=== PATIENT | female | born 1945 | race Caucasian/White ===

== ENCOUNTER → 2023-04-17 11:12 | Outpatient (REF) | payer MEDICARE, SELFPAY | LOC: RCS 11:12 | PROVIDERS: ATTENDING PHYSICIAN Internal Medicine Cardiovascular Disease; FAMILY PHYSICIAN Physician Assistant | DX: R94.31 Abnormal electrocardiogram [ECG] [EKG] (principal) | CPT/HCPCS: 93225; 93226 ==

== ENCOUNTER 2023-07-04 12:10 | Inpatient (IN) | payer MEDICARE, SELFPAY ==
[2023-07-03 19:57] VITALS: BP 120/74
[2023-07-03 20:44] VITALS: BMI 18.4
--- NOTE | 2023-07-03 20:44 | ED.GENMED ---
History of Present Illness
General
Chief Complaint: Urinary Symptoms
Source: patient and family
Time Seen by Provider: 07/03/23 20:23
Travel History
Have you had any contact with someone who has COVID-19?: No
Do you have any symptoms of coronavirus? Fever > 100 degrees, chills, cough, shortness of breath, sore throat, loss of taste or smell, muscle aches, or headache?: No
History of Present Illness
History of Present Illness:
This patient is a 77-year-old female presents emergency department with a variety of different complaints. She first started to feel not herself about a week ago. She describes feeling 'off balance' especially when trying to stand or walk. This
is not a sensation of spinning or rotation or motion, no palpitations, lightheadedness. She does not feel this while laying in the bed, but only when she tries to stand or walk. She saw her doctor on Tuesday with complaints of irritation of her ear
and was told that her canal is obstructed with wax and she need to see an ENT doctor which she has not yet been able to do. By Tuesday patient developed nausea, mild appetite loss, nonbloody diarrhea which continues. Daughter states she checked
her blood pressure yesterday and it was 114/42. Today she was particularly noted to be just not herself, describes repeating things, losing focus, and difficulty concentrating. Patient denies abdominal discomfort (despite triage note), vomiting,
back pain, urinary symptoms, cough, sore throat, rhinorrhea, photophobia, numbness, focal weakness, visual complaints, or other complaints
Past History
Past History
ED Past Medical History: Other (Rheumatoid arthritis, hypertension)
Social History
Tobacco: Non-smoker
Alcohol: None
Drug: None
Living: alone
Employment: Employed
Family History
Family History: Other (Noncontributory)
Phy Exam
Physical Exam
Physical Exam:
GENERAL: Alert , in no apparent distress
EYE: pupils equal and reactive, no photophobia, no nystagmus, EOMI
NECK: Supple, no significant adenopathy, nods yes and no spontaneously without difficulty.
ENT: o/p clr, mmm.
CARDIAC: Regular rate and rhythm .
LUNGS: Clear breath sounds bilaterally, no acute respiratory distress, no wheezes/rales/rhonchi
ABDOMEN: Soft, without focal tenderness, no r/g, no cvat
NEUROLOGICAL: Alert and oriented, no focal neuro deficits, motor 5 out of 5, sensory intact, [id number] normal, cranial nerves II through XII intact. However, patient very off balance upon standing and when trying to perform Romberg fell back
into the bed.
SKIN: Warm and dry, skin intact.
MUSCULOSKELETAL: No edema, well perfused.
PSYCH: Normal and appropriate interaction.
Course
Orders/Labs/Results
Orders:
Orders
07/03/23 20:04
Electrocardiogram (*1) Urgent
Reason for Study: Vertigo / Dizzy
EKG- Treatment ONCE
07/03/23 20:28
CMP [Comprehensive Metabolic Panel] Urgent
Complete Blood Count/With Diff Urgent
Blood Culture Urgent
FABIANA Source: Blood/Venous
Specimen Description:
Date Specimen was Collected: 07/03/23
Time Specimen was Collected: 20:04
Influenza A+B Rapid Molecular Urgent
FABIANA Source: Nasal Swab
Specimen Description:
07/03/23 20:29
COVID-19 Antigen Urgent
Source: Nasal Swab
Lactic Acid Urgent
07/03/23 20:43
CT Head W/o Iv Contrast Urgent
Comment:
Reason For Exam: FEVER, MS CHANGE
0.9% Sodium Chloride 1000 ml [Nss] 1,000 ml IV BOLUS
Acetaminophen [Tylenol] 650 mg PO NOW STA
07/03/23 20:50
Blood Culture Routine
FABIANA Source: Blood/Venous
Specimen Description:
07/03/23 21:56
Osmolality, Random Urine Urgent
Date Specimen was Collected: 07/03/23
Time Specimen was Collected: 20:04
Comment: ADD ON
Urinalysis Urgent
Date Specimen was Collected: 07/03/23
Time Specimen was Collected: 20:04
Urine Creatinine Urgent
Date Specimen was Collected: 07/03/23
Time Specimen was Collected: 20:04
Comment: ADD ON
Urine Microscopic Urgent
Date Specimen was Collected: 07/03/23
Time Specimen was Collected: 20:04
Urine Sodium Urgent
Date Specimen was Collected: 07/03/23
Time Specimen was Collected: 20:04
Comment: ADD ON
Urine Culture Urgent
FABIANA Source: U
Specimen Description:
Date Specimen was Collected: 07/03/23
Time Specimen was Collected: 20:04
07/04/23 01:58
Admit/Transfer Patient As Directed
Co-Sign Provider:
Level of Care: Observation services
Assign to:: Telemetry
Physician / Group: Htay/Hospitalist service
Diagnosis: symptomatic hyponatremia
Reason for Telemetry: Other
Other Reason for Telemetry: hyponatremia, narcolepsy
Date to Stop Telemetry: 07/06/23
Time to Stop Telemetry: 11:00
Reason for Hospitalization: Neuro consult, trend Na+, trend telemetry
Expected length of stay greater than two midnights?: No
07/04/23 02:02
Code Status As Directed
Resuscitation Status: Full Code
07/04/23 03:11
Acetaminophen [Tylenol] 650 mg PO Q4HPRN PRN
07/04/23 03:11
Add On- LAB Routine
Tests Added?: TSH
Add On- LAB Routine
Tests Added?: urine sodium, urine osmo, urine creatinine
Consult Notification Routine
Specialty to Notify: Neurology
Date consulting provider notified: 07/04/23
Time consulting provider notified: 08:27
Notified:: Provider
Comment: TT to Dr Bryan
NEUROLOGY CONSULT Routine
Consulting Provider: Elbert Bryan
Was physician already notified: No
Reason for consult: ?symptomatic hyponatremia
Activity As Directed
Activity Level: Out of Bed-Early Mobility
Intake/ Output As Directed
Frequency: Per unit guidelines
Pneumatic Compression Sleeves As Directed
Type: Knee high
Vital Signs As Directed
Frequency: Per unit guidelines
Pulse Ox/spot Check [RESP] Routine
Quantity: 1
Ot Eval And Treat Routine
Treatment: cognitive
PT Consult [Pt Eval And Treat] Routine
Activity Level: Out of Bed-Early Mobility
DX Deep Vein Thrombosis Video Routine
07/04/23 03:52
Pt Screening Request from Edwige Routine
07/04/23 04:00
Flush (0.9% Sodium Chloride) [Flush (Nss)] See Dose Instructions IV PER PROTOCOL
07/04/23 04:30
Basic Metabolic Panel IN AM
Magnesium IN AM
TSH Routine
Comment: ADD ON
07/04/23 Breakfast
Cholesterol Lowering
At Your Request: Full Participation
Does patient need a safe tray?: No
Fluid Restriction: 1200 mL/day (40 oz)
07/04/23 07:15
MR Brain Without Contrast Routine
Comment: Ataxia, dizzy, balance abnormalities
Reason For Exam: Rule out posterior circulation infarct
Recent pill cam endoscopy?: No
07/04/23 08:00
Heparin 5,000 units SC Q12
Levothyroxine [Synthroid] 75 mcg PO DAILY@0600
Losartan [Cozaar] 100 mg PO DAILY
Orthostatic Vital Signs As Directed
Orthostatic VS Frequency: BID
07/04/23 08:04
Aspirin Chewable [Low Strength Aspirin] 81 mg PO NOW STA
07/04/23 08:06
Orthostatic Vital Signs As Directed
Orthostatic VS Frequency: Now
Comment: PLEASE TT ME RESULT
07/04/23 08:45
0.9% Sodium Chloride 1000 ml [Nss] 1,000 ml IV 80 mls/hr
07/04/23 10:00
CefTRIAXone [Rocephin] 1,000 mg IV Q24H
Sterile Water [Sterile Water For Injection] 10 ml IV Q24H
07/04/23 16:21
Sodium Routine
07/05/23 05:56
BMP [Basic Metabolic Panel] IN AM
CBC/With Diff [Complete Blood Count/With Diff] IN AM
Magnesium IN AM
07/06/23 11:00
DC Protocol for Telemetry ONCE
Abnormal Lab Results
07/03/23 07/03/23 07/04/23
20:28 21:56 04:30
RBC 3.63 L 10^6/uL
(4.20-5.40)
Hgb 11.1 L g/dL
(12.0-16.0)
Hct 31.4 L %
(37.0-47.0)
Absolute Lymphs (auto) 0.7 L 10^3/uL
(1.2-3.4)
Neutrophils % 81.5 H %
(42.2-75.2)
Lymphocytes % 9.7 L %
(20.5-51.1)
Sodium 127 L mmol/L 129 L mmol/L
(135-145) (135-145)
Chloride 94 L mmol/L
(98-107)
Glucose 161 H mg/dl 123 H mg/dl
(70-99) (70-99)
Calcium 8.2 L mg/dl 7.6 L mg/dl
(8.4-10.2) (8.4-10.2)
AST 59 H U/L
(14-36)
Urine Ketones Trace A
(Negative)
Urine Occult Blood 4+ A
(Negative)
Ur Leukocyte Esterase Trace A
(Negative)
Urine RBC 11-15 A /HPF
(0-2)
Urine WBC 6-10 A /HPF
(0-5)
Urine Bacteria Few A
(Negative)
Urine Sodium 92 H mmol/L
(30-90)
Urine Albumin 2+ A
(Neg - Trace)
07/03/23 20:28
07/04/23 04:30
Vital Signs
Initial and Last Documented VS:
Initial Vital Signs
Temp Pulse Resp BP Pulse Ox
102.8 F H 84 24 120/74 95
07/03/23 19:57 07/03/23 19:57 07/03/23 19:57 07/03/23 19:57 07/03/23 19:57
Last Documented Vital Signs
Temp Pulse Resp BP Pulse Ox
97.8 F 63 16 149/65 95
07/08/23 11:30 07/08/23 12:37 07/08/23 11:30 07/08/23 12:37 07/08/23 11:30
*Critical Care Note
Total Time (30-74mins, 75-104mins- exclusive of procedures): Not Applicable
Update Note
Update Note:
Patient presents to the Emergency Department with fever, 'off balance', etc.____
Number and Complexity of Problems Addressed at the Encounter
� Chronic conditions affecting care:
� Acute Exacerbation and/or Progression of Chronic Illness:
� Differential Diagnosis includes: But not limited to pneumonia, UTI, metabolic encephalopathy, etc.
Amount and/or Complexity of Data to be Reviewed and Analyzed
� I performed an independent evaluation of and my interpretation is:
EKG:
CT:Moderate white matter leukoaraiosis in the frontal and parietal lobes.
2. Moderate bilateral frontal lobe volume loss.
3. 3.7 cm arachnoid cyst in the posterior fossa.
Xrays:
Laboratory Studies:hypoNa 127, mild hypoerglycemia, equivacol urine
Other:
� Review of other/old records reveals:
� Clinical information was obtained by an independent historian: Daughter who is at bedside
� Prescriptions/Medications Considered but not given:
� Further testing considered but not performed:
Risk of Complications and/or Morbidity or Mortality of Patient Management
� Social determinants of health affecting care:
� Discussion with other providers (PCP, Hospitalists, Consultants, etc):
� Escalation of care including admission/observation vs risk of discharge considered: Of note, patient gets the methotrexate infusion on a regular basis. No specific etiology for fever noted here, no meningismus to suggest
meningitis/encephalitis, no meningeal signs on exam. Overall stable. Disequilibrium may be d/w hypoNa although cnsideratin for post circ process, dilan will need MR as inpt for full assessment. (not iat/tnk candidate). Will admit for further
eval and care. Pt is on an arb which may be contributing, will d/c that.
ED Attending Note
-
Portions of this chart may have been created with voice recognition software.� Occasional wrong word or��sound alike� substitutions may have occurred due to the inherent limitations of voice recognition software.
Discharge Plan
Departure
Patient Disposition: Admit
Date of Disposition: 07/04/23
Time of Disposition: 00:09
Admit to: Telemetry
Admit to doctor: [email or web address]
Presentation/result/management discussed w/ accepting MD/DO: Hospitalist
Condition: Fair
Discharge Problem:
Acute hyponatremia
Interventions
Interventions:
*Risk Screen - Suicide Last Done: 07/04/23 03:30
*General Assessment Last Done: 07/03/23 20:41
*Neglect/Abuse Screening Last Done: 07/03/23 19:57
ED- Fall Risk Assessment Last Done: 07/03/23 20:58
*ED COVID-19 Vaccine History Last Done: 07/04/23 03:30
*Nursing Disposition Last Done: 07/04/23 03:08
ED-Female Genitourinary Assessment Last Done: 07/03/23 20:58
ED- Neurological Assessment Last Done: 07/03/23 20:58
ED-Skin Assessment Last Done: 07/03/23 20:58
Discharge Date and Time
Discharge Date/Time: 07/04/23 03:08
[2023-07-03 20:45] LABS: % Basophils 0.1 % (0-2); % Immature Granulocytes 0.5 % (0-0.5); % Lymphocytes 9.7 % (20.5-51.1); % Monocytes 8.2 % (1.7-9.3); % Neutrophils 81.5 % (42.2-75.2); Absolute Lymphocytes 0.7 10^3/uL (1.2-3.4); Absolute Monocytes 0.6 10^3/uL (0.1-0.6); Absolute Neutrophils 6.2 10^3/uL (1.4-6.5); Hematocrit 31.4 % (37.0-47.0); Hemoglobin 11.1 g/dL (12.0-16.0); Mean Corp Hgb Conc. 35.4 g/dL (33.0-37.0); Mean Corpuscular Hgb 30.6 pg (27.0-31.0); Mean Corpuscular Volume 86.5 fL (81.0-99.0); Nucleated Red Blood Cells % 0 %; Platelet Count 172 10^3/uL (130-400); Red Blood Cell Count 3.63 10^6/uL (4.20-5.40); Red Cell Dist. Width 12.9 % (11.5-14.5); White Blood Cell Count 7.6 10^3/uL (4.8-10.8)
[2023-07-03] MEDS: NSS 1000 IV (20:51)
[2023-07-03 20:56] LABS: Lactic Acid 1.2 mmol/L (0.7-2.0)
[2023-07-03] MEDS: TYLENOL 650 MG PO (20:56)
[2023-07-03 20:58] VITALS: BP 138/54
[2023-07-03 21:00] VITALS: BP 111/90
[2023-07-03 21:02] LABS: ALT (SGPT) 22 U/L (0-35); AST (SGOT) 59 U/L (14-36); Albumin 3.7 g/dl (3.5-5.0); Alkaline Phosphatase 46 U/L (38-126); Blood Urea Nitrogen 12 mg/dl (7-17); Calcium 8.2 mg/dl (8.4-10.2); Carbon Dioxide 24 mmol/L (22-30); Chloride 94 mmol/L (98-107); Estimated Creatinine Clearance 60 ml/min; Glucose 161 mg/dl (70-99); Potassium 3.7 mmol/L (3.5-5.1); Sodium 127 mmol/L (135-145); Total Bilirubin 0.5 mg/dl (0.2-1.3); Total Protein 6.7 g/dl (6.3-8.2); eGFR > 60.00
[2023-07-03 21:03] LABS: COVID-19 Antigen Negative (Negative)
[2023-07-03 22:11] LABS: Urine Albumin 2+ (Neg - Trace); Urine Bilirubin Negative (Negative); Urine Glucose Negative (Negative); Urine Ketone Trace (Negative); Urine Leukocyte Trace (Negative); Urine Nitrite Negative (Negative); Urine Occult Blood 4+ (Negative); Urine Urobilinogen Negative (Neg - 1+)
[2023-07-03 22:24] LABS: Urine Character Clear (Clear); Urine Color Yellow
[2023-07-03 22:28] LABS: Urine Hyaline Cast 0-2 /LPF (0-2)
[2023-07-03 22:31] LABS: Urine Bacteria Few (Negative)
[2023-07-03 22:34] VITALS: BP 107/52
[2023-07-03 23:00] VITALS: BP 114/55
[2023-07-04] VITALS (12 sets, daily range): BP systolic 104–150; BP diastolic 45–119; PULSE 56–96; O2SAT 92; BMI 18.5
--- NOTE | 2023-07-04 02:01 | HPS.HSE ---
Addendum entered and electronically signed by Emerson Fernandez MD 07/04/23 14:25:
OT evaluation
07/04/23
11:58
Comment AAOx3, follows
1-2 step
directions,
impaired STM.
Pt scores 40/50
on BCAT, a
score
consistent with
mild cognitive
impairment.
Recommend pt
use pill sorter
and have
family
supervision
initially for
medication mgmt
.
Original Note:
Family Physician
-
Family Physician: Joy Capps
Chief Complaint
-
Subjective balance dysfunction and not felt well
History of Present Illness
77F HX RA on Remicade, HX Narcolepsy on Armodafinil, Depression on SSRI seen art ER for evaluation of subjective balance dysfunction
Subjective balance dysfunction
- associated posture especially standing or walking
- denies vertiginous like symptoms
- Denied recent falls
- Denies any focal weakness or abnormal vision
- Recently eval by PCP noted obstructed ear canal with wax, pending to see ENT
- No prior HX CVA
- Noted soft BP at ER and labile
- Reports not herself, repeating things, losing focus, and difficulty concentrating
- No recent acute viral illness
ROS;
No abdominal discomfort, vomiting
No urinary symptoms
No cough, sore throat, rhinorrhea,
No numbness, focal weakness, visual complaints
Medical History
Past Medical History
Past Medical History: Reports Other
Additional Past Medical History:
HX RA on Remicade, HX Narcolesy on Armodafinil, Depression on SSRI
Past Surgical History: Reports None
Social History
Tobacco: Non-smoker
Alcohol: None
Drug: None
Living: Alone
Family History
Family History: Not pertinent
Allergies / Home Medications
Allergies reflects when Allergies were last updated in [facility].
Home Medications with original date entered in [facility]
Allergy/Medication List:
Allergies
Allergy/AdvReac Type Severity Reaction Status Date / Time
NKA - No Known Allergies Allergy Unknown Uncoded 07/03/23 20:03
Home Medications
escitalopram oxalate 20 mg tablet 30 mg PO DAILY 10/10/15
armodafinil 150 mg tablet 150 mg PO DAILY 07/03/23
coenzyme Q10 100 mg capsule (CoQ-10) 200 mg PO DAILY 07/03/23
levothyroxine 75 mcg tablet 75 mcg PO DAILY 07/03/23
losartan 100 mg tablet 100 mg PO DAILY 07/03/23
methocarbamol 500 mg tablet 500 mg PO Q8H 07/03/23
Review of Systems
-
Constitutional: Reports No Symptoms
EENT: Reports No Symptoms
Respiratory: Reports No Symptoms
Cardiac: Reports No Symptoms
Abdomen/GI: Reports No Symptoms
: Reports No Symptoms
Musculoskeletal: Reports No Symptoms
Skin: Reports No Symptoms
Neurological: Reports See HPI; Denies Headache, Weakness or Numbness
Endocrine: Reports No Symptoms
Hematologic/Lymphatic: Reports No Symptoms
Psych: Reports No Symptoms
Physical Exam
Vital Signs
Vital Signs
Temp Pulse Resp BP Pulse Ox
99.8 F 62 20 107/54 95
07/03/23 22:34 07/04/23 01:00 07/04/23 01:00 07/04/23 01:00 07/03/23 21:00
Physical Exam
General: Well Developed, No Apparent Distress, Comfortable and Conversant
HEENT: NormoCephalic, Anicteric, Moist mucous membranes, PERRLA, No Ptosis and Other (no nystagmus ); No Hearing Impaired
Respiratory: Clear; No Wheezes, Rales or Rhonchi
Cardiac: S1/S2 and Regular Rhythm
Breast: Deferred by me
GI: Soft, Non Tender, Non Distended and Normal Bowel Sounds
Rectal: Deferred by Provider
Genito-urinary: Deferred by me
Musculoskeletal: No Edema
Skin: Warm and Dry
Neuro: AO x 3 and Nonfocal/grossly intact; No Slurred Speech, Facial Droop or Tremors
Psych: Calm
Laboratory Results
-
07/03/23 20:28
07/03/23 20:28
Laboratory Results
Lactic Acid 1.2 mmol/L (0.7-2.0) 07/03/23 20:29
Total Bilirubin 0.5 mg/dl (0.2-1.3) 07/03/23 20:
AST 59 U/L (14-36) H 07/03/23 20:28
ALT 22 U/L (0-35) 07/03/23 20:28
Alkaline Phosphatase 46 U/L (38-126) 07/03/23 20:28
Data Reviewed
-
CT Scan: Report Reviewed by me
Medical Tests (Nuc Med, Echo, EKG etc): Report Reviewed by me
Lab Data: Labs Reviewed by me
Impression/Plan
-
Reviewed VS: T102.8 BP 138/54--> 107/54 HR 60-70s
Data
Hgb 11 - bl 13s
Na 127 -bl 135 - 140
BG 161
NEG LA
Ca 8.2
AST 59
UA : equivocal for UTI
NEG Covid
NEG Flu A & B
BCx sent
Pending Stool CX , C Diff
HCT
1. Moderate white matter leukoaraiosis in the frontal and parietal lobes.
2. Moderate bilateral frontal lobe volume loss.
3. 3.7 cm arachnoid cyst in the posterior fossa.
EKG report
NORMAL SINUS RHYTHM
NONSPECIFIC ST AND T WAVE ABNORMALITY
ABNORMAL ECG
WHEN COMPARED WITH ECG OF 10-OCT-2015 20:54,
NONSPECIFIC T WAVE ABNORMALITY NOW EVIDENT IN INFERIOR LEADS
NONSPECIFIC T WAVE ABNORMALITY NOW EVIDENT IN ANTEROLATERAL LEADS
QT HAS SHORTENE
04/12/23 TTE
LVEF 60-65
Aortic sclerosis without stenosis.
ASSESSMENT & PLAN
Subjective balance dysfunction without focal neurological signs
Current HCT findings are unreadable for etiology of balance dysfunction
Associated posture especially standing or walking
- denies vertiginous like symptoms
- Denied recent falls
- Ortho VSS
- fall precaution
- OT consult for BCAT ( Brief cognitive assessment test )
- Neuro consult
Acute hyponatremia with relative hypotensive suspect due to recent diarrhea
Clinically hypovolemic; Mild
Risk of hyponatremia with SSRI but prior Na are normal while on years of Escitalopram
- S/p 1 L NS at ER then Fluid restrict 1 L and trend Na
- Ur Na, Ur Osm , Sr Osm
Sinus bradycardia
- check TSH
Fever at ER
report Diarrhea
NEG Covid , NEG FLU A & B
Equivocal UA for UTI
- check stool Cx, C Diff
HX RA on Remicade - infusion every 8 weeks - she cannot recall when was the last dose
HX Narcolepsy on Armodafinil
Depression on SSRI
DVT Px: LMWH
Code: Full code
Obs TLM
--- NOTE | 2023-07-04 04:53 | PTCARENOTE ---
patient admitted to 2130, placed on tele monitor, oriented to floor routines. Call pedro within reach. Inst patient on need for stool sample, hat placed in toilet, pt verb understanding
[2023-07-04 05:32] LABS: Osmolality Urine 483 mOsm/kg (300-900)
[2023-07-04 05:37] LABS: Blood Urea Nitrogen 11 mg/dl (7-17); Calcium 7.6 mg/dl (8.4-10.2); Carbon Dioxide 24 mmol/L (22-30); Chloride 100 mmol/L (98-107); Estimated Creatinine Clearance 61 ml/min; Glucose 123 mg/dl (70-99); Magnesium 1.9 mg/dl (1.6-2.3); Potassium 3.7 mmol/L (3.5-5.1); Sodium 129 mmol/L (135-145); eGFR > 60.00
[2023-07-04 05:58] LABS: TSH 2.93 uIU/ml (0.47-4.68)
[2023-07-04 06:15] LABS: Urine Sodium 92 mmol/L (30-90)
--- NOTE | 2023-07-04 07:54 | W.PN.HOSP.TC ---
Today's Communication/Plan
-
start IVF
start abx for UTI
awaiting stool studies
MRI ordered per neuro
PT/OT
Assessment / Plan
Assessment / Plan
HEAD CT
IMPRESSION:
1. Moderate white matter leukoaraiosis in the frontal and parietal lobes.
2. Moderate bilateral frontal lobe volume loss.
3. 3.7 cm arachnoid cyst in the posterior fossa.
ASSESSMENT & PLAN
Subjective balance dysfunction and word finding difficulty
Associated posture especially standing or walking
-head CT results above, no acute event
- denies vertiginous like symptoms
- F/U orthostats - not yet in computer
- asa now, MRI ordered per neuro
- F/U final neuro consult
- PT/OT
Acute hyponatremia with relative hypotensive suspect due to recent diarrhea and fluid loss with fever
Risk of hyponatremia with SSRI but prior Na are normal while on years of Escitalopram
- S/p 1 L NS at ER
- Na improved from 127 to 129
-urine studies show elevated Na but with persistent fevers and improvement s/p 1L bolus will resume running IVF given risk volume loss
- repeat Na at 2 PM
Sinus bradycardia
-TSH WNL, P 82 this AM
Fever at ER in setting of diarrhea
NEG Covid , NEG FLU A & B
UA with mild inflammation - with persistent fever and GI complaints will start abx
- check stool Cx, C Diff
HX RA on Remicade - infusion every 8 weeks - she cannot recall when was the last dose
HX Narcolepsy on Armodafinil
Depression on SSRI
DVT Px: LMWH
Code: Full code
Obs TLM
Anticipated Discharge: 24 - 48 hours
Subjective/Interval History
-
Date of Service: July 04, 2023
patient states she is hungry and thirsty
she has felt off balance x 1 weeks
no weakness in arms or legs
left eye always a bit more droopy than right
Objective Data
-
Labs:
Laboratory Results
07/03/23 07/04/23
20:28 04:30
WBC 7.6
Hgb 11.1 L
Hct 31.4 L
Plt Count 172
Sodium 127 L 129 L
Potassium 3.7 3.7
Chloride 94 L 100
Carbon Dioxide 24 24
BUN 12 11
Creatinine 0.6 0.6
Glucose 161 H 123 H
Calcium 8.2 L 7.6 L
Total Bilirubin 0.5
AST 59 H
ALT 22
Alkaline Phosphatase 46
Vital Signs:
Vital Signs
Temp Pulse Resp BP Pulse Ox
99.3 F 82 20 149/58 95
07/04/23 03:39 07/04/23 03:39 07/04/23 03:39 07/04/23 03:39 07/04/23 03:39
I&O
07/03/23 07/04/23 07/05/23
06:59 06:59 06:59
Intake Total 380 / 380
Balance 380 / 380
Review of Systems
-
History Source: Patient
All other systems: Reviewed and negative
Physical Exam
-
General: No Apparent Distress
HEENT: Other (mild left eye ptosis (chronic per patient))
Respiratory: Clear to Auscultation; Negative Wheezes
Cardiac: Regular Rhythm and S1/S2
GI: Soft and Nontender
Musculoskeletal: No Edema
Skin: Warm and Dry; Negative Rash
Neuro: AO x 3 and Other (no obvious pronator drift, 5/5 strength upper and lower extremities )
Psych: Calm
Data Reviewed
-
Diagnostic Radiology: Report Reviewed by me
Labs: Labs Reviewed by me
--- NOTE | 2023-07-04 08:09 | CON.NEURO4 ---
Addendum entered and electronically signed by Elbert Bryan MD 07/04/23 15:34:
Brain MRI with no acute findings moderate ischemic microvascular disease no chronic strokes or hemorrhage
No indication for chronic aspirin
Continue with the care otherwise
Addendum entered and electronically signed by Elbert Bryan MD 07/04/23 12:25:
I saw and evaluated the patient I reviewed the note by Alisha Thomas agree with the findings the following comments:
77-year-old woman with a past medical history of type I narcolepsy, hypothyroidism, depression, rheumatoid arthritis on Remicade who presents to the hospital with couple of symptoms including abdominal pain and diarrhea for the past, as well as
feeling off balance and a bit of fogginess difficulty concentration and some mild speech difficulties.
Patient reports she first began to feel unwell around 1 week ago noting some difficulties with concentration brain fogginess and poor memory at that time. For the past several days she has had diarrhea daily without any vomiting has had some mild
abdominal pain, denies dysuria or polyuria. Has also had some balance difficulty. Did have fever to 102 and 100.9 here. Has not had any recent exotic foods or undercooked chicken or fish or recent travel, no recent antibiotics.
Neurologic examination shows some mild psychomotor slowing difficulty with complex cognitive tasks, no aphasia no neglect praxis is normal, fully conversational and awake. Normal cranial nerves normal motor function and symmetric reflexes without
any pathologic reflexes normal finger-nose testing no ataxia.
CT head noncontrast with mild bifrontal volume loss and 3.7 cm arachnoid cyst in the posterior fossa
Assessment
-Most likely toxic metabolic encephalopathy due to acute illness with GI illness fever and mild hyponatremia
-Rheumatoid arthritis on immunosuppression with Remicade
-Type I narcolepsy
Recommendations
-Given her immunosuppression with Remicade would have low threshold to check brain MRI without contrast which I will order
-Treat suspected urinary tract infection and workup of abdominal pain and diarrhea
-Do not recommend aspirin
-Follow sodium
Original Note:
Documented by User: Alisha Steele NP 07/04/23 10:48
Consultation - Neurology 4
-
CONSULTING PHYSICIAN: Gatito Bryan MD
REFERRING PHYSICIAN: Hospitalists/MOISE Schmidt
DICTATED BY: MOISE Garrett
DATE/TIME OF REQUEST: 07/04/23
DATE/TIME OF CONSULTATION: 07/04/23
Reason for Consultation: Dizziness
History of Present Illness:
This is a 77-year-old right-handed female who has presented to the hospital on 07/03/23 with report of diarrhea . Patient reports that about one week ago she started to have intermittent diarrhea. Since the diarrhea started, she reports that her
gait became unsteady and her brain has felt 'fuzzy.' Her left ear was bothering her last week as well, and her PCP noted that it was impacted with wax and referred her to ENT. She endorses some RLQ abdominal discomfort, abdominal bloating, and runny
stools. Her last large runny stool was two days ago on 07/02/23, but today she endorses 4-5 small episodes of runny diarrhea including incontinence. She feels forgetful and is having a hard time keeping track of things she usually has no issues with.
She denies any falls but reports that if she doesn't focus while walking she does lose her balance. She denies any urinary changes/discomfort and any recent illnesses or antibiotic usage. Yesterday, her daughter encouraged her to come to the ER for
evaluation due to her ongoing symptoms. CT head was obtained in the ER and is negative for any acute abnormalities. Sodium is 127. Urinalysis is questionable for UTI. Temperature today is 102F. She denies any headache, dizziness, light-headed,
vision changes, speech/swallow difficulty, numbness, weakness, nausea, chest pain, palpitations, and shortness of breath. She endorses chronic left eyelid drooping that she had surgically repaired several years ago.She denies any history of TIA or
stroke and she is not taking any blood-thinning medications.
Past Medical History: Rheumatoid arthritis, HTN, hypothyroidism, thyroid nodule, narcolepsy, shingles, osteopenia, depression, bilateral sensorineural hearing loss, ADHD
Surgical History: b/l cataract removal, left eyelid lift, salivary gland biopsy, LPS- BTL, L arm surgery, R knee surgery
Family History: Father, brother, daughter, and granddaughter- narcolepsy/cataplexy. Mother- CVA.
Social History: Denies tobacco and illicit drug use. Wine daily. Lives alone with her 3 cats- Jayson Salmeron, Princess Hinojosa, and Long. 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
Allergies: No known allergies.
Home Medications: See below.
Review of Symptoms:
Patient denies any headache, chest pain, shortness of breath, GI or symptoms.
�Per the HPI.�All systems are reviewed negative except above.
Physical Exam:
The patient is afebrile, abdomen is nondistended, breathing is unlabored, skin is warm and dry, no edema.
NIH Stroke Scale:
I performed the NIH stroke scale on the patient on 07/04/23 at 0830. The patient scored 1 points on the NIH stroke scale assessment, which were assigned as follows: See below.
Neurologic Examination:
The patient is awake, alert and oriented x 3. She is able to follow commands and answer questions appropriately. There is no aphasia or dysarthria. On cranial nerve assessment, pupils are 3 mm bilateral, round and reactive to light and
accommodation. Visual aguirre are full. Extraocular movements are intact. There is slight left eyelid drooping. Hearing is diminished bilaterally to normal conversation volume. Tongue palate and uvula are midline. Sternocleidomastoid strengths are
full bilaterally. Motor strengths are 5/5 bilateral upper and lower extremities on medical research Alutiiq scale. There is no drift or involuntary movement noted. Deep tendon reflexes are 2+ bilateral upper and lower extremities and Babinski is
absent bilaterally. Sensations of touch, temperature and vibration are intact and bilaterally symmetrical. There was no extinction noted on double simultaneous stimulation. Coordination is intact by finger to nose bilaterally. Gait is steady.
Lab Results: See below.
Neuro Imaging:
1. CT Head 07/03/23: Moderate white matter leukoaraiosis in the frontal and parietal lobes. Moderate bilateral frontal lobe volume loss. 3.7 cm arachnoid cyst in the posterior fossa.
Differentials for the patient's presentation include:
1. TME in the setting of GI disturbance, possible infection likely producing ataxia and confusion.
2. Immunosuppression with Remicade, low concern for encephalitis but cannot entirely exclude this.
3. Low concern for stroke but possible.
4. Hyponatremia, improving.
Patient has the following risk factors for their symptoms: Remicade usage, diarrhea
IV Tenecteplase/IAT candidacy: Not a candidate due to unclear diagnosis, outside of time window.
Recommendations:
-MRI brain noncontrast ordered/pending due to Remicade usage.
-Do not see a clear indication to continue aspirin at this time, will revisit this after MRI brain.
-Goal normotension.
-Goal normothermia.
-Monitor sodium level.
-Infectious workup per primary team, consideration for abdomen imaging.
-Neurological checks per unit guidelines.
-PT/OT/ST evaluations.
-DVT prophylaxis.
-Will follow pending results.
Discussed patient care with: Dr. Bryan, the patient
Vital Signs and Labs
-
Vital Signs and Labs:
Vital Signs
Temp Pulse Resp BP Pulse Ox
100.9 F H 82 18 137/64 92
07/04/23 10:21 07/04/23 08:11 07/04/23 08:11 07/04/23 08:11 07/04/23 08:11
Lab Results
07/03/23 20:28
Sodium Cancelled 07/04/23 13:00
Potassium 3.7 mmol/L (3.5-5.1) 07/04/23 04:30
BUN 11 mg/dl (7-17) 07/04/23 04:30
Glucose 123 mg/dl (70-99) H 07/04/23 04:30
Calcium 7.6 mg/dl (8.4-10.2) L 07/04/23 04:30
Medications
-
Active Medications
Generic Name Dose Route Start Last Admin
Trade Name Freq PRN Reason Stop Dose Admin
Acetaminophen 650 mg 07/04/23 03:11 07/04/23 08:40
Acetaminophen 325 Mg Tablet PO 08/01/23 03:10 650 mg
Q4HPRN PRN Administration
mild pain/SEQUEIRA/temp> 100.4F
Ceftriaxone Sodium 1,000 mg 07/04/23 10:00
Ceftriaxone 1000 Mg / 10 Ml Vial IV
Q24H LUIS ALBERTO
Heparin Sodium 5,000 units 07/04/23 08:00 07/04/23 08:42
Heparin 5,000 Units/Ml 1 Ml Vial SC 08/01/23 07:59 5,000 units
Q12 LUIS ALBERTO Administration
Sodium Chloride 1,000 mls @ 80 mls/hr 07/04/23 08:45
Nss IV
.[id number] LUIS ALBERTO
Levothyroxine Sodium 75 mcg 07/04/23 08:00 07/04/23 08:40
Levothyroxine 75 Mcg Tablet PO 08/01/23 07:59 75 mcg
DAILY@0600 LUIS ALBERTO Administration
Sodium Chloride 0 flush 07/04/23 04:00
Sodium Chloride 0.9% (Flush) Syringe IV 08/01/23 03:59
PER PROTOCOL LUIS ALBERTO
Sterile Water 10 ml 07/04/23 10:00
Sterile Water For Injection 10 Ml Vial IV 08/01/23 09:59
Q24H LUIS ALBERTO
Home Medications
�Medication �Instructions �Recorded
escitalopram oxalate 20 mg tablet 30 mg PO DAILY 10/10/15
armodafinil 150 mg tablet 150 mg PO DAILY 07/03/23
coenzyme Q10 100 mg capsule 200 mg PO DAILY 07/03/23
(CoQ-10)
levothyroxine 75 mcg tablet 75 mcg PO DAILY 07/03/23
losartan 100 mg tablet 100 mg PO DAILY 07/03/23
NIH Stroke Score
Subsequent NIH Scale
Date of Subsequent NIH Scale: 07/04/23
Time of Subsequent NIH Scale: 08:30
NIH Stroke Score
Level of Consciousness: 0 - Alert
LOC Questions: 0-Answers both correctly
LOC Commands: 0-Performs both correctly
Best Horizontal Gaze: 0-Normal
Visual Aguirre: 0=Normal, no visual loss
Facial Palsy: 1=Minor paralysis
Motor - Right Arm: 0=No drift 10 seconds
Motor - Left Arm: 0=No drift 10 seconds
Motor - Right Le-No drift 5 seconds
Motor - Left Le-No drift 5 seconds
Limb Ataxia: 0-Absent
Sensation: 0-Normal
Best Language: 0-No aphasia
Dysarthria: 0-Normal
Extinction and Inattention: 0-No abnormality
Total Score:: 1

Documented by User: Elbert Bryan MD 07/04/23 12:20
NIH Stroke Score
NIH Stroke Score
Total Score:: 1
[2023-07-04] MEDS: SYNTHROID 75 MCG PO (08:40)
[2023-07-04] MEDS: LOW STRENGTH ASPIRIN 81 MG PO (08:40)
[2023-07-04] MEDS: TYLENOL 650 MG PO ×3 (08:40→21:14)
[2023-07-04] MEDS: HEPARIN 5000 UNITS SC ×2 (08:42→20:50)
[2023-07-04] MEDS: NSS 1000 IV ×2 (10:47→18:21)
[2023-07-04] MEDS: ROCEPHIN 1000 MG IV (10:48)
[2023-07-04] MEDS: STERILE WATER FOR INJECTION 10 ML IV (10:48)
--- NOTE | 2023-07-04 13:05 | CM ---
Reviewed the chart notes and spoke with the patient at the bedside. The patient is admitted under observational status. The [facility] letter was provided and explained. The patient had not questions with regards to the letter.
The patient resides alone in a one story home with one step to enter. The patient reports no DME/VN/SNF in the past. The patient anticipates being discharged to home with no additional needs being identified at this time. The patient is on
enhanced precautions. CM continues to be available to patient/family and is monitoring medical plan for needs at discharge.
Plan: Discharge to home when medically stable.
[2023-07-04 16:53] LABS: Sodium 129 mmol/L (135-145)
[2023-07-05 02:30] VITALS: BP 135/59
[2023-07-05] MEDS: TYLENOL 650 MG PO ×3 (02:37→23:12)
[2023-07-05 03:17] VITALS: BP 135/59
[2023-07-05] MEDS: SYNTHROID 75 MCG PO (05:08)
[2023-07-05 06:26] LABS: % Basophils 0.5 % (0-2); % Lymphocytes 15.1 % (20.5-51.1); % Monocytes 4.6 % (1.7-9.3); % Neutrophils 78.8 % (42.2-75.2); Absolute Immature Granulocytes 0.1 10^3/uL (0-0.05); Absolute Lymphocytes 0.9 10^3/uL (1.2-3.4); Absolute Monocytes 0.3 10^3/uL (0.1-0.6); Absolute Neutrophils 4.9 10^3/uL (1.4-6.5); Hematocrit 33.3 % (37.0-47.0); Hemoglobin 11.6 g/dL (12.0-16.0); Mean Corp Hgb Conc. 34.8 g/dL (33.0-37.0); Mean Corpuscular Hgb 30.9 pg (27.0-31.0); Mean Corpuscular Volume 88.8 fL (81.0-99.0); Mean Platelet Volume 10.2 fL (7.4-10.4); Nucleated Red Blood Cells % 0 %; Platelet Count 174 10^3/uL (130-400); Red Blood Cell Count 3.75 10^6/uL (4.20-5.40); Red Cell Dist. Width 13.3 % (11.5-14.5); White Blood Cell Count 6.2 10^3/uL (4.8-10.8)
[2023-07-05 06:52] LABS: Blood Urea Nitrogen 10 mg/dl (7-17); Calcium 8.1 mg/dl (8.4-10.2); Carbon Dioxide 26 mmol/L (22-30); Chloride 99 mmol/L (98-107); Estimated Creatinine Clearance 52 ml/min; Glucose 118 mg/dl (70-99); Magnesium 2.1 mg/dl (1.6-2.3); Potassium 4.3 mmol/L (3.5-5.1); Sodium 132 mmol/L (135-145); eGFR > 60.00
[2023-07-05 07:51] VITALS: BP 134/59
[2023-07-05] MEDS: HEPARIN 5000 UNITS SC ×2 (08:50→20:12)
[2023-07-05] MEDS: STERILE WATER FOR INJECTION 10 ML IV (08:51)
[2023-07-05] MEDS: ROCEPHIN 1000 MG IV (08:51)
[2023-07-05] MEDS: NSS 1000 IV (08:54)
--- NOTE | 2023-07-05 09:01 | W.PN.HOSP.TC ---
Today's Communication/Plan
-
Ceftriaxone/Azithro
monitor fever curve - consider ID consult tomorrow if persists with high fevers
F/U cultures
PT/OT
stop fluids
Assessment / Plan
Assessment / Plan
HEAD CT
IMPRESSION:
1. Moderate white matter leukoaraiosis in the frontal and parietal lobes.
2. Moderate bilateral frontal lobe volume loss.
3. 3.7 cm arachnoid cyst in the posterior fossa.
CXR
IMPRESSION:
Left basilar pneumonia.
BRAIN MRI 07/04/23
IMPRESSION:
No MRI evidence for an acute infarct. Chronic findings, as above.
ASSESSMENT & PLAN
Fevers
Community Acquired Pneumonia
Diarrhea
-CXR shows left basilar PNA
-started on Ceftriaxone on 07/03, add on IV Azithromycin today (EKG tomorrow AM for monitoring QTc)
-F/U blood cultures
-monitor fever curve
-covid and flu negative
-stool cultures ordered but patient not able to give sample
Subjective balance dysfunction and word finding difficulty
Associated posture especially standing or walking
-suspect TME 2/2 above
-head CT results above, no acute event
-s/p MRI without acute abnormality
-orthos negative
-no need for further aspirin
-appreciate neuro
-PT/OT
Acute hyponatremia with relative hypotensive suspect due to recent diarrhea and fluid loss with fever
Risk of hyponatremia with SSRI but prior Na are normal while on years of Escitalopram
- S/p 1 L NS at ER
- Na improved to over 130 this AM
- IVF now off
HX RA on Remicade - infusion every 8 weeks - she cannot recall when was the last dose
HX Narcolepsy on Armodafinil
Depression on SSRI
DVT Px: LMWH
Code: Full code
Obs TLM
Anticipated Discharge: 24 - 48 hours
Subjective/Interval History
-
Date of Service: July 05, 2023
speaking more clearly today
denies abdominal pain
mild lower cramping that goes away
Objective Data
-
Labs:
Laboratory Results
07/05/23
05:56
WBC 6.2
Hgb 11.6 L
Hct 33.3 L
Plt Count 174
Sodium 132 L
Potassium 4.3
Chloride 99
Carbon Dioxide 26
BUN 10
Creatinine 0.7
Glucose 118 H
Calcium 8.1 L
Vital Signs:
Vital Signs
Temp Pulse Resp BP Pulse Ox
100.0 F 66 17 134/59 93
07/05/23 07:51 07/05/23 07:51 07/05/23 07:51 07/05/23 07:51 07/05/23 07:51
I&O
07/04/23 07/05/23 07/06/23
06:59 06:59 06:59
Intake Total 380 / 380 1520 / 1520
Output Total 400 / 400
Balance 380 / 380 1120 / 1120
Review of Systems
-
History Source: Patient
All other systems: Reviewed and negative
Physical Exam
-
General: No Apparent Distress and Conversant
HEENT: PERRLA
Respiratory: Clear to Auscultation; Negative Wheezes
Cardiac: Regular Rhythm and S1/S2
GI: Soft, Nontender and Nondistended
Musculoskeletal: No Edema
Skin: Warm and Dry; Negative Rash
Neuro: AO x 3
Psych: Calm
Data Reviewed
-
Diagnostic Radiology: Report Reviewed by me
Labs: Labs Reviewed by me
[2023-07-05] MEDS: VISBIOME 1 CAP PO (10:11)
[2023-07-05] MEDS: LEXAPRO 30 MG PO (10:11)
[2023-07-05] MEDS: ZITHROMAX INFUSION 250 IV (10:11)
--- NOTE | 2023-07-05 14:13 | CM ---
Reviewed the chart notes. Patient now inpatient status. Patient persists with fevers. PT evaluation recommending home with VN vs SNF. CM continues to be available to patient/family and is monitoring medical plan for needs at discharge.
Plan: Discharge plans will depend on the patient's progress.
[2023-07-05 15:16] VITALS: BP 135/63
--- NOTE | 2023-07-05 17:16 | CON.ID ---
Consultation
-
Date/Time Consultation Requested: 07/05/23 1604
Date/Time Consultation Performed: 07/05/2023 1649
Requesting Provider: Dr. Garcia
Performing Provider: Dr. Perry
Reason for Consultation: Pneumonia; fever
Chief Complaint / Past History
History of Present Illness
Marycruz Quintero is a 77-year-old female being evaluated at the request of Dr. Garcia in regards to pneumonia. History is obtained from chart review, along with patient interview.
The patient reports that she has been feeling ill for approximate the past week. She initially states that she felt 'off balance'. She was seen by her PCP, and cerumen was seen in her ear canal, but she is still awaiting an appointment to see ENT.
She presented to the hospital late on 07/02, secondary to generalized nausea, decreased appetite. She also admits to some diarrhea last week, but none at present. She denies any vomiting.
Additional history is that of having an underlying diagnosis of rheumatoid arthritis and has been on Remicade for the past 10 years. She reports that she recently was taken off of it, although she may have restarted, this is not clear. Currently
she admits to shortness of breath. She has cough, but no sputum production.
She lives in a house alone, but with 3 cats. There is a basement, but she reports that it is not wet and she has not been around any standing water. She notes no sick contacts. She is looked in after by her daughter and son. She denies any
recent travel. She reports fevers for the past 3 to 4 days.
Past History
Additional Past Medical History:
RA
HTN
Past Surgical History: None
Allergy History:
No Known Allergies Allergy (Unverified 07/04/23 18:04)
Medications Reviewed: Yes
Current Antibiotics:
Ceftriaxone 1 g IV every 24 hours (day #2)
Azithromycin 500 mg IV every 24 hours (day #1)
Social History
Tobacco: Non-Smoker
Alcohol: Occasional
Drug: None
Living: Alone
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
Family History
Family History: Not Pertinent
Review of Systems
Vital Signs
Temp Pulse Resp BP Pulse Ox
102.9 F H 72 17 135/63 92
07/05/23 15:16 07/05/23 15:16 07/05/23 15:16 07/05/23 15:16 07/05/23 15:16
Physical Exam
Physical Exam
Constitutional: No Acute Distress, Comfortable and Non-toxic
Eyes: Pupils Equal, Pupils Round, No Conjunctival Hemorrhage and Sclera Anicteric
Oral: No Thrush and No Ulcers
Cardiovascular: Regular Rate and S1/S2; Negative S3/S4 or Murmur
Pulmonary: Wheezes, Coarse and Other (Mildly labored.); Negative Rales
Gastrointestinal: Soft, Non Tender, Non Distended, Normal Bowel Sounds, No Rebound and No Guarding
Extremities: Negative Edema, Cyanosis or Erythema
Skin: Warm and Dry; Negative Rash or Jaundice
Neurological: Awake and Alert
Psychological: Calm
.
Lab / Diagnostic Study Results
07/05/23 05:56
07/05/23 05:56
Abs Immat Gran (auto) 0.1 10^3/uL (0-0.05) H 07/05/23 05:56
Absolute Neuts (auto) 4.9 10^3/uL (1.4-6.5) 07/05/23 05:56
Absolute Lymphs (auto) 0.9 10^3/uL (1.2-3.4) L 07/05/23 05:56
Absolute Monos (auto) 0.3 10^3/uL (0.1-0.6) 07/05/23 05:56
Absolute Basos (auto) 0.0 10^3/uL (0-0.2) 07/05/23 05:56
Immature Gran % 1.0 % (0-0.5) H 07/05/23 05:56
Neutrophils % 78.8 % (42.2-75.2) H 07/05/23 05:56
Lymphocytes % 15.1 % (20.5-51.1) L 07/05/23 05:56
Monocytes % 4.6 % (1.7-9.3) 07/05/23 05:56
Eosinophils % 0.0 % (0-6) 07/05/23 05:56
Basophils % 0.5 % (0-2) 07/05/23 05:56
Lactic Acid 1.2 mmol/L (0.7-2.0) 07/03/23 20:29
Urine WBC 6-10 /HPF (0-5) A 07/03/23 21:56
Ur Squamous Epith Cells 6-10 /LPF (Few) 07/03/23 21:56
Microbiology Results
Micro:
07/03/23 21:56 Urine Culture - Final
Urine
07/03/23 20:50 Blood Culture - Preliminary
Blood/Venous No Growth in 24 hours- Final report to follow
07/03/23 20:28 Blood Culture - Preliminary
Blood/Venous No Growth in 24 hours- Final report to follow
07/03/23 20:28 Influenza Types A & B (RADHA) - Final
Nasal Swab Negative for Influenza A & B, NAAT
Negative results must be combined with clinical observations
and patient history.
Nucleic Acid Amplification test (NAAT)performed on the
[employer] platform.
Imaging:
07/05/2023 CXR (2 view): Large airspace opacity in the left lung base with involvement of the left lower lobe and lingula, most compatible with pneumonia. Probable small left pleural effusion also noted. Right lung is clear. No pneumothorax.
Please see full dictation for additional detail. Film personally viewed.
Assessment / Plan
Left lower lobe pneumonia
- suspect Legionella given constellation of symptoms.
Hyponatremia
Nausea
Rheumatoid arthritis; recently on Remicade
HTN
Recommendations:
Continue with current antibiotic selection (ceftriaxone/Azithromycin)
Monitor white count and temperature curve.
Legionella and pneumococcal urinary antigens are pending.
Will check Legionella DFA if patient can produce any sputum.
Monitor sodium level
[2023-07-05 19:05] VITALS: BP 126/61
[2023-07-05 23:23] VITALS: BP 137/69
[2023-07-06 03:10] VITALS: BP 126/55
[2023-07-06] MEDS: SYNTHROID 75 MCG PO (05:33)
[2023-07-06 08:12] VITALS: BP 156/71
--- NOTE | 2023-07-06 08:27 | W.PN.HOSP.TC ---
Today's Communication/Plan
-
see plan
Assessment / Plan
Assessment / Plan
HEAD CT
IMPRESSION:
1. Moderate white matter leukoaraiosis in the frontal and parietal lobes.
2. Moderate bilateral frontal lobe volume loss.
3. 3.7 cm arachnoid cyst in the posterior fossa.
CXR
IMPRESSION:
Left basilar pneumonia.
BRAIN MRI 07/04/23
IMPRESSION:
No MRI evidence for an acute infarct. Chronic findings, as above.
ASSESSMENT & PLAN
Legionella PNA
Fevers
Diarrhea
-CXR shows left basilar PNA
-started on Ceftriaxone on 07/03, add on IV Azithromycin 07/04
-with + legionella AG --> Stop Ceftriaxone
-Day 2 Azithromycin
-appreciate ID consult
-F/U blood cultures
-monitor fever curve
Subjective balance dysfunction and word finding difficulty
Associated posture especially standing or walking
-suspect TME 2/2 above
-head CT results above, no acute event
-s/p MRI without acute abnormality
-orthos negative
-no need for further aspirin
-appreciate neuro
-PT/OT
Acute hyponatremia with relative hypotensive suspect due to recent diarrhea and fluid loss with fever
Risk of hyponatremia with SSRI but prior Na are normal while on years of Escitalopram
- S/p 1 L NS at ER
- Na improved to over 130 this AM
- stop IVF
- awaiting AM labs
HX RA on Remicade - infusion every 8 weeks - she cannot recall when was the last dose
HX Narcolepsy on Armodafinil
Depression on SSRI
DVT Px: LMWH
Code: Full code
Obs TLM
Anticipated Discharge: 24 - 48 hours
Subjective/Interval History
-
Date of Service: July 06, 2023
had formed BM this morning
+ cough
continues to have fevers but less severe
Objective Data
-
Labs:
Laboratory Results
07/06/23
06:00
WBC Pending
Hgb Pending
Hct Pending
Plt Count Pending
Sodium Pending
Potassium Pending
Chloride Pending
Carbon Dioxide Pending
BUN Pending
Creatinine Pending
Glucose Pending
Calcium Pending
Vital Signs:
Vital Signs
Temp Pulse Resp BP Pulse Ox
99.7 F 62 20 126/55 93
07/06/23 03:10 07/06/23 03:10 07/06/23 03:10 07/06/23 03:10 07/06/23 03:10
I&O
07/05/23 07/06/23 07/07/23
06:59 06:59 06:59
Intake Total 1520 / 1520 1680 / 1680
Output Total 400 / 400
Balance 1120 / 1120 1680 / 1680
Review of Systems
-
History Source: Patient
All other systems: Reviewed and negative
Physical Exam
-
General: No Apparent Distress and Conversant
HEENT: PERRLA
Respiratory: Clear to Auscultation; Negative Wheezes
Cardiac: Regular Rhythm and S1/S2
GI: Soft, Nontender and Nondistended
Musculoskeletal: No Edema
Skin: Warm and Dry; Negative Rash
Neuro: AO x 3
Psych: Calm
Data Reviewed
-
Diagnostic Radiology: Report Reviewed by me
Labs: Labs Reviewed by me
[2023-07-06] MEDS: VISBIOME 1 CAP PO (08:48)
[2023-07-06] MEDS: LEXAPRO 30 MG PO (08:48)
[2023-07-06] MEDS: ZITHROMAX INFUSION 250 IV (08:48)
[2023-07-06] MEDS: HEPARIN 5000 UNITS SC ×2 (08:48→20:17)
[2023-07-06 08:53] LABS: % Basophils 0.2 % (0-2); % Immature Granulocytes 0.7 % (0-0.5); % Lymphocytes 13.3 % (20.5-51.1); % Neutrophils 81.8 % (42.2-75.2); Absolute Lymphocytes 0.8 10^3/uL (1.2-3.4); Absolute Monocytes 0.2 10^3/uL (0.1-0.6); Absolute Neutrophils 4.9 10^3/uL (1.4-6.5); Hematocrit 32.3 % (37.0-47.0); Hemoglobin 11.2 g/dL (12.0-16.0); Mean Corp Hgb Conc. 34.7 g/dL (33.0-37.0); Mean Corpuscular Hgb 30.6 pg (27.0-31.0); Mean Corpuscular Volume 88.3 fL (81.0-99.0); Mean Platelet Volume 9.9 fL (7.4-10.4); Nucleated Red Blood Cells % 0 %; Platelet Count 176 10^3/uL (130-400); Red Blood Cell Count 3.66 10^6/uL (4.20-5.40); Red Cell Dist. Width 13.3 % (11.5-14.5)
[2023-07-06 09:53] LABS: Blood Urea Nitrogen 10 mg/dl (7-17); Calcium 7.8 mg/dl (8.4-10.2); Carbon Dioxide 25 mmol/L (22-30); Chloride 101 mmol/L (98-107); Estimated Creatinine Clearance 61 ml/min; Glucose 93 mg/dl (70-99); Potassium 3.4 mmol/L (3.5-5.1); Sodium 130 mmol/L (135-145); eGFR > 60.00
--- NOTE | 2023-07-06 10:36 | PTCARENOTE ---
EKG completed. Normal SInus rhythm. Forwarded to Dr. Garcia via [place] text [id number]
--- NOTE | 2023-07-06 11:41 | W.PN.ID1 ---
Date of Service
Date of Service: July 06, 2023
Today's Communication
Continue with Azithromycin.
Assessment / Plan
Left lower lobe pneumonia
Legionnaires disease
Hyponatremia
Nausea
Rheumatoid arthritis; recently on Remicade
HTN
Recommendations:
Continue with Azithromycin. Can transition to oral route. Ceftriaxone has been discontinued.
Monitor white count and temperature curve.
Monitor sodium level
Chief Complaint
-: Pneumonia
Subjective / Review of Systems
Seen and examined. Reports ongoing fatigue. Temperature curve improving.
Review of Systems: Cough and No Sputum Production
Vital Signs / Physical Exam
Vital Signs
Vital Signs
Temp Pulse Resp BP Pulse Ox
98.4 F 75 20 156/71 93
07/06/23 08:12 07/06/23 08:12 07/06/23 08:12 07/06/23 08:12 07/06/23 08:12
Physical Exam
Constitutional: No Acute Distress, Comfortable and Non-toxic
Eyes: No Conjunctival Hemorrhage and Sclera Anicteric
Cardiovascular: S1/S2; Negative S3/S4
Pulmonary: Coarse and Non Labored; Negative Wheezes
Gastrointestinal: Soft, Non Tender and Non Distended
Neurological: Awake and Alert
Psychological: Calm
Objective Data
Lab Data
Lab Results
07/06/23 08:31
07/06/23 08:31
Estimated Creat Clear 61 ml/min 07/06/23 08:31
Lactic Acid 1.2 mmol/L (0.7-2.0) 07/03/23 20:29
Total Bilirubin 0.5 mg/dl (0.2-1.3) 07/03/23 20:28
AST 59 U/L (14-36) H 07/03/23 20:28
ALT 22 U/L (0-35) 07/03/23 20:28
Alkaline Phosphatase 46 U/L (38-126) 07/03/23 20:28
Most recent labs reviewed.
Micro Results:
07/03/23 20:50 Blood Culture - Preliminary
Blood/Venous No Growth in 48 hours- Final report to follow
07/03/23 20:28 Blood Culture - Preliminary
Blood/Venous No Growth in 48 hours- Final report to follow
07/05/23 18:03 Legionella Urinary Antigen - Final
Urine Positive for L. pneumophila Ag
Streptococcus pneumoniae Antigen (M - Final
Negative for Streptococcus pneumoniae antigen.
A negative result does not exclude infection with
Streptococcus pneumoniae. Clinical correlation is
recommended.
07/03/23 21:56 Urine Culture - Final
Urine
07/03/23 20:28 Influenza Types A & B (RADHA) - Final
Nasal Swab Negative for Influenza A & B, NAAT
Negative results must be combined with clinical observations
and patient history.
Nucleic Acid Amplification test (NAAT)performed on the
[employer] platform.
Imaging:
07/05/2023 CXR (2 view): Large airspace opacity in the left lung base with involvement of the left lower lobe and lingula, most compatible with pneumonia. Probable small left pleural effusion also noted. Right lung is clear. No pneumothorax.
Please see full dictation for additional detail. Film personally viewed.
Care Review
Plan reviewed with: Physician (Hospitalist)
[2023-07-06 12:30] VITALS: BP 134/72
[2023-07-06] MEDS: TYLENOL 650 MG PO (12:49)
[2023-07-06] MEDS: KCL 40 MEQ PO (12:49)
--- NOTE | 2023-07-06 13:47 | PTCARENOTE ---
Tylenol given at 1249 for fever of 101.8. Recheck temp at 1340 100.9. Will continue to monitor
--- NOTE | 2023-07-06 14:27 | CM ---
Reviewed the chart notes and spoke with the patient at the bedside. Discussed PT recommendation of SNF. Patient's brother is coming from [place] to stay with the patient. Per patient, she feels she will do better at home with home VN/PT/OT.
Patient selected . Referral sent. CM continues to be available to patient/family and is monitoring medical plan for needs at discharge.
Plan: Discharge to home with VN services.
--- NOTE | 2023-07-06 14:52 | PTCARENOTE ---
pt spiked fever at 1249 of 101.8 oral. gave prn dose of tylenol and rechecked temp at 1340 for 100.9 oral. Temp rechecked again at 1430 rectal 101.1. Pt. flushed in the face complaining of feeling hot. Dr. Garcia notified
[2023-07-06] MEDS: MOTRIN 600 MG PO (15:12)
[2023-07-06 16:00] VITALS: BP 108/49
[2023-07-06 19:16] VITALS: BP 116/58
[2023-07-06 23:21] VITALS: BP 126/63
[2023-07-07 03:33] VITALS: BP 123/62
[2023-07-07] MEDS: SYNTHROID 75 MCG PO (05:00)
[2023-07-07 06:27] LABS: Blood Urea Nitrogen 12 mg/dl (7-17); Calcium 7.8 mg/dl (8.4-10.2); Carbon Dioxide 25 mmol/L (22-30); Chloride 99 mmol/L (98-107); Estimated Creatinine Clearance 61 ml/min; Glucose 146 mg/dl (70-99); Potassium 3.8 mmol/L (3.5-5.1); Sodium 132 mmol/L (135-145); eGFR > 60.00
[2023-07-07 08:13] VITALS: BP 138/63
--- NOTE | 2023-07-07 08:44 | W.PN.HOSP.TC ---
Today's Communication/Plan
-
asking PT to work with patient again this AM as she wants to go home and refuses SNF
Assessment / Plan
Assessment / Plan
HEAD CT
IMPRESSION:
1. Moderate white matter leukoaraiosis in the frontal and parietal lobes.
2. Moderate bilateral frontal lobe volume loss.
3. 3.7 cm arachnoid cyst in the posterior fossa.
CXR
IMPRESSION:
Left basilar pneumonia.
BRAIN MRI 07/04/23
IMPRESSION:
No MRI evidence for an acute infarct. Chronic findings, as above.
ASSESSMENT & PLAN
Legionella PNA
Fevers
Diarrhea
-CXR shows left basilar PNA
-started on Ceftriaxone on 07/03, add on IV Azithromycin 07/04
-with + legionella AG --> Stop Ceftriaxone
-Day 3 Azithromycin, will likely need 14 day therapy - will confirm with ID
-appreciate ID consult
-potential DC today or tomorrow; patient refusing SNF
Subjective balance dysfunction and word finding difficulty
Associated posture especially standing or walking
-suspect TME 2/2 above
-head CT results above, no acute event
-s/p MRI without acute abnormality
-orthos negative
-no need for further aspirin
-appreciate neuro
-PT/OT
Acute hyponatremia with relative hypotensive suspect due to recent diarrhea and fluid loss with fever
Risk of hyponatremia with SSRI but prior Na are normal while on years of Escitalopram
-Na stable > 130 this AM
HX RA on Remicade - infusion every 8 weeks - she cannot recall when was the last dose
HX Narcolepsy on Armodafinil
Depression on SSRI
DVT Px: LMWH
Code: Full code
Obs TLM
Anticipated Discharge: Within 24 hours
Subjective/Interval History
-
Date of Service: July 07, 2023
she states she is feeling better
no fevers overnight
normal BM this AM
Objective Data
-
Labs:
Laboratory Results
07/07/23
05:51
Sodium 132 L
Potassium 3.8
Chloride 99
Carbon Dioxide 25
BUN 12
Creatinine 0.5 L
Glucose 146 H
Calcium 7.8 L
Vital Signs:
Vital Signs
Temp Pulse Resp BP Pulse Ox
97 F 65 18 138/63 95
07/07/23 08:13 07/07/23 08:13 07/07/23 08:13 07/07/23 08:13 07/07/23 08:13
I&O
07/06/23 07/07/23 07/08/23
06:59 06:59 06:59
Intake Total 1680 / 1680 1380 / 1380
Output Total 500 / 500
Balance 1680 / 1680 880 / 880
Review of Systems
-
History Source: Patient
All other systems: Reviewed and negative
Physical Exam
-
General: No Apparent Distress and Conversant
HEENT: PERRLA
Respiratory: Clear to Auscultation; Negative Wheezes
Cardiac: Regular Rhythm and S1/S2
GI: Soft, Nontender and Nondistended
Musculoskeletal: No Edema
Skin: Warm and Dry; Negative Rash
Neuro: AO x 3
Psych: Calm
Data Reviewed
-
Diagnostic Radiology: Report Reviewed by me
Labs: Labs Reviewed by me
[2023-07-07] MEDS: ZITHROMAX 500 MG PO (08:51)
[2023-07-07] MEDS: VISBIOME 1 CAP PO (08:52)
[2023-07-07] MEDS: HEPARIN 5000 UNITS SC ×2 (08:52→21:30)
[2023-07-07] MEDS: LEXAPRO 30 MG PO (08:52)
--- NOTE | 2023-07-07 10:16 | PN.CDI ---
CDI
- -
CDI:
Physician Documentation Request
Admit Date: 07/04/23 12:10
Dear Doctor Radha,
Please review the following and provide your response in the progress notes.
Clinical Indicators:
Neurology, consult, 07/03
#-Most likely toxic metabolic encephalopathy due to
#...acute illness with GI illness fever and mild hyponatremia
#-Rheumatoid arthritis on immunosuppression with Remicade
PN, 07/05
#Legionella PNA
#Fevers
#-started on Ceftriaxone on 07/03, add on IV Azithromycin 07/04
#-with + legionella AG --> Stop Ceftriaxone
#-Day 2 Azithromycin
#-suspect TME 2/2 above
#HX RA on Remicade - infusion every 8 weeks - she cannot recall when was the last dose
Temperatures documented:
#07/02 through 07/05
#103.0 F to 100.5 F
Please clarify which of the following most accurately describes the status of the patient's infection:
Atypical sepsis with atypical presentation based on immunocompromised, Legionella PNA, TME, and persistent fevers... , POA
Localized Infection Only, Without Systemic Illness
- indicate the site/source, such as UTI, pneumonia etc.
Other (please specify)
Sepsis
- Systemic manifestations of infection, with 2 or more SIRS criteria which include:
- Fever >100.4 degrees F or hypothermia < 96.8 degrees F
- Leukocytosis - WBC > 12,000 or leukopenia - WBC < 4,000 or > 10% bands
- Tachycardia > 90 beats per minute
- Tachypnea - RR > 20 breaths per minute or PaCO2 , 32mmHg
Source: Merck Manual 2013
- Indicate the known or suspected organism
- Indicate the known or suspected underlying infection, such as UTI, pneumonia or cellulitis
- Indicate if a suspected bacterial infection of unknown source
Severe Sepsis
- Sepsis with associated acute organ dysfunction, such as renal or respiratory failure
- Documentation should indicate the association between the sepsis and the organ dysfunction
Use of terms such as suspected, likely, concern for, or probable (associated with a specific diagnosis that is being evaluated, monitored, or treated as if it exists) are acceptable and can be coded in the inpatient setting, when documented at the
time of discharge.
Thank you,
Kylie King RN BSN CCDS
CDI Specialist
please contact via tiger text
Please use your independent medical judgment in providing your response.
[2023-07-07 11:55] VITALS: BP 147/59
--- NOTE | 2023-07-07 12:44 | VNURNOTE ---
Home Health Liaison met with patient at 1115 to discuss [facility] nurse/therapy, visits, schedule and homebound status. Patient is agreeable and understands that visits at home will be 2-3 x per week to assess and teach medical management.
[facility] brochure provided with contact information. Patient is aware that [facility] will contact her for start of care in 1-2 days after discharge from .
[facility] referral completed in [facility].
--- NOTE | 2023-07-07 14:49 | W.PN.ID1 ---
Date of Service
Date of Service: July 07, 2023
Today's Communication
Continue antibiotics.
Assessment / Plan
Left lower lobe pneumonia
Legionnaires disease
Hyponatremia
Nausea
Rheumatoid arthritis; recently on Remicade
HTN
Recommendations:
Continue with Azithromycin to complete an additional 14 days (given underlying immunosuppression)
����������������������������������������������������������
Chief Complaint
-: Pneumonia (Legionella)
Subjective / Review of Systems
Review of Systems: No Fever and No Chills
Vital Signs / Physical Exam
Vital Signs
Vital Signs
Temp Pulse Resp BP Pulse Ox
98 F 61 16 147/59 94
07/07/23 11:55 07/07/23 11:55 07/07/23 11:55 07/07/23 11:55 07/07/23 11:55
Physical Exam
Constitutional: No Acute Distress, Comfortable and Non-toxic
Cardiovascular: S1/S2; Negative S3/S4
Pulmonary: Coarse and Non Labored; Negative Wheezes
Gastrointestinal: Soft and Non Tender
Neurological: Awake and Alert
Psychological: Calm
Objective Data
Lab Data
Lab Results
07/06/23 08:31
07/07/23 05:51
Estimated Creat Clear 61 ml/min 07/07/23 05:51
Lactic Acid 1.2 mmol/L (0.7-2.0) 07/03/23 20:29
Total Bilirubin 0.5 mg/dl (0.2-1.3) 07/03/23 20:28
AST 59 U/L (14-36) H 07/03/23 20:28
ALT 22 U/L (0-35) 07/03/23 20:28
Alkaline Phosphatase 46 U/L (38-126) 07/03/23 20:28
Most recent labs reviewed.
Micro Results:
07/03/23 20:50 Blood Culture - Preliminary
Blood/Venous No Growth in 72 hours- Final report to follow
07/03/23 20:28 Blood Culture - Preliminary
Blood/Venous No Growth in 72 hours- Final report to follow
07/05/23 18:03 Legionella Urinary Antigen - Final
Urine Positive for L. pneumophila Ag
Streptococcus pneumoniae Antigen (M - Final
Negative for Streptococcus pneumoniae antigen.
A negative result does not exclude infection with
Streptococcus pneumoniae. Clinical correlation is
recommended.
07/03/23 21:56 Urine Culture - Final
Urine
07/03/23 20:28 Influenza Types A & B (RADHA) - Final
Nasal Swab Negative for Influenza A & B, NAAT
Negative results must be combined with clinical observations
and patient history.
Nucleic Acid Amplification test (NAAT)performed on the
[employer] platform.
Imaging:
07/05/2023 CXR (2 view): Large airspace opacity in the left lung base with involvement of the left lower lobe and lingula, most compatible with pneumonia. Probable small left pleural effusion also noted. Right lung is clear. No pneumothorax.
Please see full dictation for additional detail. Film personally viewed.
Care Review
Plan reviewed with: Physician (Hospitalist)
[2023-07-07 15:04] VITALS: BP 130/64
--- NOTE | 2023-07-07 16:03 | CM ---
Reviewed the chart notes and spoke with the patient at the bedside. IMM signed and placed on chart. CM continues to be available to patient/family and is monitoring medical plan for needs at discharge.
Plan: Discharge to home with [facility] services.
[2023-07-07 19:26] VITALS: BP 127/67
[2023-07-07] MEDS: TYLENOL 650 MG PO (23:10)
[2023-07-07 23:37] VITALS: BP 129/59
[2023-07-08 05:55] VITALS: BMI 18.4
[2023-07-08] MEDS: SYNTHROID 75 MCG PO (05:57)
[2023-07-08 06:00] VITALS: BMI 18.4
[2023-07-08 07:20] VITALS: BP 139/59
[2023-07-08] MEDS: HEPARIN 5000 UNITS SC (08:24)
[2023-07-08] MEDS: ZITHROMAX 500 MG PO (08:24)
[2023-07-08] MEDS: VISBIOME 1 CAP PO (08:24)
[2023-07-08] MEDS: LEXAPRO 30 MG PO (08:24)
--- NOTE | 2023-07-08 08:26 | W.PN.HOSP.TC ---
Addendum entered and electronically signed by Padmini Garcia MD 07/09/23 14:23:
Atypical sepsis with atypical presentation based on immunocompromised, Legionella PNA, TME, and persistent fevers POA
Original Note:
Today's Communication/Plan
-
OK for DC today
Assessment / Plan
Assessment / Plan
HEAD CT
IMPRESSION:
1. Moderate white matter leukoaraiosis in the frontal and parietal lobes.
2. Moderate bilateral frontal lobe volume loss.
3. 3.7 cm arachnoid cyst in the posterior fossa.
CXR
IMPRESSION:
Left basilar pneumonia.
BRAIN MRI 07/04/23
IMPRESSION:
No MRI evidence for an acute infarct. Chronic findings, as above.
ASSESSMENT & PLAN
Legionella PNA
Fevers
Diarrhea
-CXR shows left basilar PNA
-started on Ceftriaxone on 07/03, add on IV Azithromycin 07/04
-with + legionella AG --> Stopped Ceftriaxone
-Day 4 Azithromycin, will need 14 days therapy given immunosuppression
-appreciate ID consult
-OK for DC today with HH
Subjective balance dysfunction and word finding difficulty
Associated posture especially standing or walking
-suspect TME 2/2 above
-head CT results above, no acute event
-s/p MRI without acute abnormality
-orthos negative
-no need for further aspirin
-appreciate neuro
-PT/OT - gait improving, OK for HH
Acute hyponatremia with relative hypotensive suspect due to recent diarrhea and fluid loss with fever
Risk of hyponatremia with SSRI but prior Na are normal while on years of Escitalopram
-Na stable > 130
HX RA on Remicade - infusion every 8 weeks - she cannot recall when was the last dose
HX Narcolepsy on Armodafinil
Depression on SSRI
DVT Px: LMWH
Code: Full code
Obs TLM
Anticipated Discharge: Today
Subjective/Interval History
-
Date of Service: July 08, 2023
spiked to 101 last night but overall feeling better
wants to go home
brother will be at home with her
Objective Data
-
Vital Signs:
Vital Signs
Temp Pulse Resp BP Pulse Ox
98.2 F 52 16 139/59 97
07/08/23 07:20 07/08/23 07:20 07/08/23 07:20 07/08/23 07:20 07/08/23 07:20
I&O
07/07/23 07/08/23 07/09/23
06:59 06:59 06:59
Intake Total 1380 / 1380 900 / 900
Output Total 500 / 500 100 / 100
Balance 880 / 880 800 / 800
Review of Systems
-
History Source: Patient
All other systems: Reviewed and negative
Physical Exam
-
General: No Apparent Distress and Conversant
HEENT: PERRLA
Respiratory: Clear to Auscultation; Negative Wheezes
Cardiac: Regular Rhythm and S1/S2
GI: Soft, Nontender and Nondistended
Musculoskeletal: No Edema
Skin: Warm and Dry; Negative Rash
Neuro: AO x 3
Psych: Calm
Data Reviewed
-
Diagnostic Radiology: Report Reviewed by me
Labs: Labs Reviewed by me
--- NOTE | 2023-07-08 08:32 | W.DS.TRANS ---
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
-
Discharge Instructions:
Discharge Diagnosis/Procedures Legionella Pneumonia
Diet Regular
Activity As tolerated
Driving Restrictions As prior to admission
Bathing Restrictions None
Blood Work BMP one week
Other Services VN
Instructions:
Stand-Alone Forms:
Changes to Home Medications: Yes
Discharge Medications:
DC Medications w/original date entered in [facility]
escitalopram oxalate 20 mg tablet 30 mg PO DAILY Depression 10/10/15
armodafinil 150 mg tablet 150 mg PO DAILY STIMULENT 07/03/23
coenzyme Q10 100 mg capsule (CoQ-10) 200 mg PO DAILY Supplement 07/03/23
levothyroxine 75 mcg tablet 75 mcg PO DAILY Thyroid 07/03/23
azithromycin 250 mg tablet 500 mg (2 x 250 mg) PO DAILY #20 tabs 07/08/23
losartan 100 mg tablet 100 mg PO DAILY Blood Pressure #1 tab 07/08/23
Home Medication Changes
10 more days Azithromycin
Pending Results: No
--- NOTE | 2023-07-08 09:41 | CM ---
Reviewed the chart notes. The patient is being discharged to home today on VN services. Family will provide transportation home. CM continues to be available to patient/family and is monitoring medical plan for needs at discharge.
Plan: Discharge to home with VN services.
--- NOTE | 2023-07-08 10:11 | W.PN.ID1 ---
Date of Service
Date of Service: July 08, 2023
Today's Communication
Continue abx.
Assessment / Plan
Left lower lobe pneumonia
Legionella pneumoniae infection.
Hyponatremia
Nausea
Rheumatoid arthritis; recently on Remicade
HTN
Recommendations:
Continue with Azithromycin to complete an additional 13 days (given underlying immunosuppression)
����������������������������������������������������������
Chief Complaint
-: Pneumonia (Legionella)
Subjective / Review of Systems
Review of Systems: No Fever, No Chills, No Cough and No Sputum Production
Vital Signs / Physical Exam
Vital Signs
Vital Signs
Temp Pulse Resp BP Pulse Ox
98.2 F 52 16 139/59 97
07/08/23 07:20 07/08/23 07:20 07/08/23 07:20 07/08/23 07:20 07/08/23 07:20
Physical Exam
Constitutional: No Acute Distress, Comfortable and Non-toxic
Eyes: Sclera Anicteric
Pulmonary: Non Labored
Gastrointestinal: Non Distended
Neurological: Awake and Alert
Psychological: Calm
Objective Data
Lab Data
Lab Results
07/06/23 08:31
07/07/23 05:51
Estimated Creat Clear 61 ml/min 07/07/23 05:51
Lactic Acid 1.2 mmol/L (0.7-2.0) 07/03/23 20:29
Total Bilirubin 0.5 mg/dl (0.2-1.3) 07/03/23 20:28
AST 59 U/L (14-36) H 07/03/23 20:28
ALT 22 U/L (0-35) 07/03/23 20:28
Alkaline Phosphatase 46 U/L (38-126) 07/03/23 20:28
Most recent labs reviewed.
Micro Results:
07/03/23 20:50 Blood Culture - Preliminary
Blood/Venous No Growth in 4 days- Final report to follow
07/03/23 20:28 Blood Culture - Preliminary
Blood/Venous No Growth in 4 days- Final report to follow
07/05/23 18:03 Legionella Urinary Antigen - Final
Urine Positive for L. pneumophila Ag
Streptococcus pneumoniae Antigen (M - Final
Negative for Streptococcus pneumoniae antigen.
A negative result does not exclude infection with
Streptococcus pneumoniae. Clinical correlation is
recommended.
07/03/23 21:56 Urine Culture - Final
Urine
07/03/23 20:28 Influenza Types A & B (RADHA) - Final
Nasal Swab Negative for Influenza A & B, NAAT
Negative results must be combined with clinical observations
and patient history.
Nucleic Acid Amplification test (NAAT)performed on the
[employer] platform.
Imaging:
07/05/2023 CXR (2 view): Large airspace opacity in the left lung base with involvement of the left lower lobe and lingula, most compatible with pneumonia. Probable small left pleural effusion also noted. Right lung is clear. No pneumothorax.
Please see full dictation for additional detail. Film personally viewed.
[2023-07-08] MEDS: COZAAR 50 MG PO ×2 (10:15→12:37)
[2023-07-08 11:30] VITALS: BP 149/65
--- NOTE | 2023-07-08 13:52 | W.DCSUMMARY ---
Discharge Summary
Discharge Data
Date of Admission: 07/04/23
Date of Discharge: 07/08/23
-
Pending Results: No
Hospital Course
Discharging Physician : Dr. Padmini Garcia
Disposition : Home with
Primary care physician : Dr. Joy Capps
Principal Discharge diagnosis : Legionalla Pneumonia
Hospital Course :
Ms. Marycruz Quintero is a 77 yo woman with hx RA on Remicade, HTN who presents to the ER with confusion, weakness, nausea and diarrhea. Triage vitals significant for T 102.8, BP 120/74. Labs with Na 127, WBC 7.6, Cr 0.6. Head CT without acute event.
UA with mild inflammation. She was admitted to medicine with neurology consulting for new balance issues and confusion in setting of what initially appeared to be a GI illness. Further work-up with CXR and Legionella AG testing revealed Legionella
Pneumonia. She was started on Azithromycin and completed 4 days in the hospital, she will be discharged on 10 additional days given immunosuppression. ID was consulted during her stay. Patient's fever curve improved and she was eager for
discharge.
Prior to diagnosis of Legionella, neuro deficits worked up with MRI which was negative for acute infarct.
Sodium levels remained stable > 130 prior to discharge.
Time spent on discharge was 35 minutes.
Important imaging findings :
HEAD CT
IMPRESSION:
1. Moderate white matter leukoaraiosis in the frontal and parietal lobes.
2. Moderate bilateral frontal lobe volume loss.
3. 3.7 cm arachnoid cyst in the posterior fossa.
MRI 07/04/23
IMPRESSION:
No MRI evidence for an acute infarct. Chronic findings, as above.
Procedure findings :
Discharge Plan
-
Patient Disposition: Home with Home Care
Discharge Diagnosis/Procedures: Legionella Pneumonia
Condition: Good
Diet: Regular
Activity: As tolerated
Driving Restrictions: As prior to admission
Bathing Restrictions: None
Blood Work: BMP one week
Other Services: VN
Referrals:
Joy Capps PA-C [Family Provider] - in less than 1 week
Meño Perry DO [Active] -
Additional Discharge Medication Instructions: You have 10 more days of Azithromycin. Take 2 tabs (500mg total) daily.
Your Remicade infusion will be on hold until your antibiotic course is completed.
OK to resume Losartan at normal dosing.
Check your blood pressure 90 -120 minutes after taking losartan. If systolic blood pressure is over 140, OK to resume amlodipine.
Prescriptions:
New
azithromycin 250 mg Tablet
500 mg PO DAILY Qty: 20 0RF
Continued
escitalopram oxalate 20 MG tablet
30 mg PO DAILY
levothyroxine 75 mcg Tablet
75 mcg PO DAILY
coenzyme Q10 [CoQ-10] 100 mg Capsule
200 mg PO DAILY
armodafinil 150 mg Tablet
150 mg PO DAILY
losartan 100 mg Tablet
100 mg PO DAILY Qty: 1 0RF
Discharge Orders:
Discharge Patient (As Directed); Ordered 07/08/23
Ordered By: Padmini Garcia
Discharge Date and Time
Discharge Date/Time: 07/08/23 13:01
Print Language: MALTESE
== END 2023-07-08 13:01 | disposition home health service (06) | DRG 871 ==
LOC: 2 NORTH 12:10
PROVIDERS: Registered Nurse; Student in an Organized Health Care Education/Training Program; ADMITTING PHYSICIAN Internal Medicine; ATTENDING PHYSICIAN Student in an Organized Health Care Education/Training Program; CONSULT PHYSICIAN Student in an Organized Health Care Education/Training Program; EMERGENCY PHYSICIAN Emergency Medicine; FAMILY PHYSICIAN Physician Assistant; OTHER PHYSICIAN Internal Medicine Infectious Disease
DX: A41.9 Sepsis, unspecified organism (principal); A48.1 Legionnaires' disease; G92.8 Other toxic encephalopathy; J16.8 Pneumonia due to other specified infectious organisms; E87.1 Hypo-osmolality and hyponatremia; N39.0 Urinary tract infection, site not specified; D84.821 Immunodeficiency due to drugs; I10 Essential (primary) hypertension; M06.9 Rheumatoid arthritis, unspecified; R27.0 Ataxia, unspecified; R19.7 Diarrhea, unspecified; G47.411 Narcolepsy with cataplexy; H02.402 Unspecified ptosis of left eyelid; I95.9 Hypotension, unspecified; G31.84 Mild cognitive impairment of uncertain or unknown etiology; E03.9 Hypothyroidism, unspecified; E04.1 Nontoxic single thyroid nodule; F90.9 Attention-deficit hyperactivity disorder, unspecified type; H90.3 Sensorineural hearing loss, bilateral; M85.80 Other specified disorders of bone density and structure, unspecified site; F32.A Depression, unspecified; Z79.890 Hormone replacement therapy; Z79.620 Long term (current) use of immunosuppressive biologic; Z11.52 Encounter for screening for COVID-19; Z82.3 Family history of stroke
CPT/HCPCS: 70450; 70551; 71046; 80048; 80053; 81003; 81015; 82570; 83605; 83735; 83935; 84295; 84300; 84443; 85025; 87040; 87086; 87449; 87502; 87811; 87899; 93005; 96360; 97116; 97129; 97163; 97166; 97530; 99285

== ENCOUNTER → 2023-07-28 07:29 | Outpatient (REF) | payer MEDICARE, SELFPAY ==
[2023-07-28 07:56] LABS: Hematocrit 37.6 % (37.0-47.0); Hemoglobin 12.4 g/dL (12.0-16.0); Mean Corpuscular Hgb 30.7 pg (27.0-31.0); Mean Corpuscular Volume 93.1 fL (81.0-99.0); Mean Platelet Volume 9.8 fL (7.4-10.4); Nucleated Red Blood Cells % 0 %; Platelet Count 208 10^3/uL (130-400); Red Blood Cell Count 4.04 10^6/uL (4.20-5.40); Red Cell Dist. Width 14.4 % (11.5-14.5); White Blood Cell Count 4.8 10^3/uL (4.8-10.8)
[2023-07-28 08:12] LABS: Erythrocyte Sed Rate 39 mm/hour (0-20)
[2023-07-28 09:54] LABS: ALT (SGPT) 15 U/L (0-35); AST (SGOT) 30 U/L (14-36); Albumin 4.1 g/dl (3.5-5.0); Alkaline Phosphatase 58 U/L (38-126); Blood Urea Nitrogen 16 mg/dl (7-17); Calcium 9.4 mg/dl (8.4-10.2); Carbon Dioxide 29 mmol/L (22-30); Chloride 105 mmol/L (98-107); Glucose 101 mg/dl (70-99); Potassium 4.3 mmol/L (3.5-5.1); Sodium 138 mmol/L (135-145); Total Bilirubin 0.3 mg/dl (0.2-1.3); Total Protein 7.4 g/dl (6.3-8.2); eGFR > 60.00
[2023-07-28 10:03] LABS: C-Reactive Protein < 5.00 mg/L (0.0-10.00)
[2023-07-28 10:18] LABS: Vitamin D, 25-OH*** 34.5 ng/mL (30-80)
[2023-07-28 11:05] LABS: Absolute Neutrophils -Man Diff 0.9 10^3/uL (1.4-6.5); Band Neutrophils 0 % (0-3); Segmented Neutrophils 20 % (42-75)
[2023-07-28 11:06] LABS: Eosinophils 5 % (0-6); Lymphocytes 70 % (20-51); Monocytes 5 % (2-9)
[2023-07-28 11:07] LABS: Normal RBC Morphology No; Platelets Checked YES
[2023-07-28 11:08] LABS: Target Cells FEW
[2023-07-28 11:09] LABS: Total Cells Counted 100
== END ==
LOC: REG 07:29
PROVIDERS: ATTENDING PHYSICIAN Internal Medicine Rheumatology; FAMILY PHYSICIAN Physician Assistant
DX: E55.9 Vitamin D deficiency, unspecified (principal); M05.79 Rheumatoid arthritis with rheumatoid factor of multiple sites without organ or systems involvement; M81.0 Age-related osteoporosis without current pathological fracture; Z79.899 Other long term (current) drug therapy
CPT/HCPCS: 36415; 80053; 82306; 85025; 85652; 86140

== ENCOUNTER → 2023-08-02 07:22 | Outpatient (REF) | payer MEDICARE, SELFPAY ==
[2023-08-02 08:02] LABS: % Basophils 0.7 % (0-2); % Eosinophils 5.3 % (0-6); % Immature Granulocytes 0.2 % (0-0.5); % Lymphocytes 55.9 % (20.5-51.1); % Monocytes 8.8 % (1.7-9.3); % Neutrophils 29.1 % (42.2-75.2); Absolute Eosinophils 0.3 10^3/uL (0-0.7); Absolute Lymphocytes 3.3 10^3/uL (1.2-3.4); Absolute Monocytes 0.5 10^3/uL (0.1-0.6); Absolute Neutrophils 1.7 10^3/uL (1.4-6.5); Hematocrit 37.5 % (37.0-47.0); Hemoglobin 12.3 g/dL (12.0-16.0); Mean Corp Hgb Conc. 32.8 g/dL (33.0-37.0); Mean Corpuscular Hgb 30.4 pg (27.0-31.0); Mean Corpuscular Volume 92.8 fL (81.0-99.0); Mean Platelet Volume 10.4 fL (7.4-10.4); Nucleated Red Blood Cells % 0 %; Platelet Count 262 10^3/uL (130-400); Red Blood Cell Count 4.04 10^6/uL (4.20-5.40); Red Cell Dist. Width 14.6 % (11.5-14.5); White Blood Cell Count 5.9 10^3/uL (4.8-10.8)
== END ==
LOC: REG 07:22
PROVIDERS: ATTENDING PHYSICIAN Internal Medicine Rheumatology; FAMILY PHYSICIAN Physician Assistant
DX: D70.9 Neutropenia, unspecified (principal); M06.9 Rheumatoid arthritis, unspecified; Z79.899 Other long term (current) drug therapy
CPT/HCPCS: 36415; 85025

== ENCOUNTER → 2023-08-19 13:24 | Outpatient (REF) | payer MEDICARE, SELFPAY | LOC: RAD 13:24 | PROVIDERS: ATTENDING PHYSICIAN Internal Medicine Rheumatology; FAMILY PHYSICIAN Physician Assistant | DX: M81.0 Age-related osteoporosis without current pathological fracture (principal) | CPT/HCPCS: 77080 ==

== ENCOUNTER → 2023-08-23 16:20 | Outpatient (REF) | payer MEDICARE, SELFPAY | LOC: RAD 16:20 | PROVIDERS: ATTENDING PHYSICIAN Physician Assistant | DX: M79.89 Other specified soft tissue disorders (principal); M79.605 Pain in left leg; M25.562 Pain in left knee; Z87.01 Personal history of pneumonia (recurrent) | CPT/HCPCS: 71046; 93971 ==

== ENCOUNTER → 2023-09-15 08:48 | Outpatient (REF) | payer MEDICARE, SELFPAY | LOC: RAD 08:48 | PROVIDERS: ATTENDING PHYSICIAN Internal Medicine Rheumatology; FAMILY PHYSICIAN Physician Assistant | DX: M06.9 Rheumatoid arthritis, unspecified (principal); M25.569 Pain in unspecified knee | CPT/HCPCS: 73560; 73565 ==

== ENCOUNTER 2023-10-04 20:00 | Emergency (ER) | payer MEDICARE, SELFPAY ==
[2023-10-04 20:04] VITALS: BP 146/62
[2023-10-04] MEDS: ADACEL 0.5 ML IM (22:14)
--- NOTE | 2023-10-04 22:15 | ED.GENMED ---
History of Present Illness
General
Chief Complaint: Head Injury
Source: patient
Exam Limitations: none
Time Seen by Provider: 10/04/23 20:32
Nursing documentation reviewed up to this point in time: agreed with
History of Present Illness
History of Present Illness:
77-year-old female with past medical history of hypertension, depression presenting to the emergency department today after a trip and fall landing on her left forehead and also hitting her left arm. Did not lose consciousness otherwise feels well
does have some discomfort to the left forehead. She is unsure when her last tetanus shot was.
Past History
Past History
ED Past Medical History: Other (Rheumatoid arthritis, hypertension)
Social History
Tobacco: Non-smoker
Alcohol: None
Drug: None
Personal:
Living: alone
Employment: Employed
Family History
Family History: Other (Noncontributory)
Review of Systems
Review of Systems
Allergies reviewed?: Yes
All Other Systems: ROS reviewed and negative except as documented in HPI and ROS
Phy Exam
Physical Exam
Physical Exam:
GENERAL: Alert , in no apparent distress
EYE: pupils equal and reactive
NECK: Supple, no significant adenopathy.
ENT: Superficial abrasion with underlying hematoma no major bleeding no significant laceration. o/p clr, mmm.
CARDIAC: Regular rate and rhythm .
LUNGS: Clear breath sounds bilaterally, no acute respiratory distress, no wheezes/rales/rhonchi
ABDOMEN: Soft, without focal tenderness, no r/g, no cvat
NEUROLOGICAL: Alert and oriented, no focal neuro deficits
SKIN: Superficial skin avulsion 1 cm in length on the left thumb no foreign body seen, superficial abrasion to the lateral aspect of the left elbow. No active bleeding. No foreign body seen. Warm and dry, skin intact.
MUSCULOSKELETAL: No edema, well perfused.
PSYCH: Normal and appropriate interaction.
Course
Orders/Labs/Results
Orders:
Orders
10/04/23 20:[address] [CT Head W/o Iv Contrast] Urgent
Comment:
Reason For Exam: FALL SOFT TISSUE SWELLING LEFT ANTERIOR HEAD
10/04/23 21:59
Tetanus/Diphth/Acelpertussis [Adacel] 0.5 ml IM .ONCE ONE
Vital Signs
Initial and Last Documented VS:
Initial Vital Signs
Temp Pulse Resp BP Pulse Ox
98.1 F 84 24 146/62 97
10/04/23 20:04 10/04/23 20:04 10/04/23 20:04 10/04/23 20:04 10/04/23 20:04
Last Documented Vital Signs
Temp Pulse Resp BP Pulse Ox
98.1 F 84 24 146/62 95
10/04/23 20:04 10/04/23 20:04 10/04/23 20:04 10/04/23 20:04 10/04/23 20:53
MDM/Problems Addressed
MDM/Problems Addressed:
77-year-old female presenting to the emergency department after ground-level fall hitting her left forehead no loss of consciousness not on blood thinners. CT scan obtained without acute abnormalities did have a moderate-sized hematoma to the left
forehead this was treated with localized wound care. Additionally a small cut to the left thumb. Steri-Strip was placed. Otherwise had a small scrape to the left elbow but otherwise good examination with good range of motion and strength was
given updated tetanus shot otherwise stable for discharge.
*Critical Care Note
Total Time (30-74mins, 75-104mins- exclusive of procedures): Not Applicable
ED Attending Note
-
Portions of this chart may have been created with voice recognition software.� Occasional wrong word or��sound alike� substitutions may have occurred due to the inherent limitations of voice recognition software.
Discharge Plan
Departure
Patient Disposition: Home (Routine Discharge)
Date of Disposition: 10/04/23
Time of Disposition: 22:15
Patient with high blood pressure during this ER visit?: No
Condition: Good
Covid-19: Not Applicable
Discharge Problem:
Fall, Hematoma, Finger laceration
Instructions: Wound Care (DC), Minor Head Injury (DC)
Prescriptions:
No Action
escitalopram oxalate 20 MG tablet
30 mg PO DAILY
levothyroxine 75 mcg Tablet
75 mcg PO DAILY
coenzyme Q10 [CoQ-10] 100 mg Capsule
200 mg PO DAILY
armodafinil 150 mg Tablet
150 mg PO DAILY
azithromycin 250 mg Tablet
500 mg PO DAILY Qty: 20 0RF
losartan 100 mg Tablet
100 mg PO DAILY Qty: 1 0RF
Referrals:
Joy Capps PA-C [Family Provider] -
Activity Restrictions/Additional Instructions:
You came to the emergency department today after a fall. Here no evidence of any emergent or life-threatening injuries you had a normal CT scan.. Please provide good local wound care to your other injuries return to the emergency department any
worsening, new or concerning symptoms.
Interventions
Interventions:
*Risk Screen - Suicide Last Done: 10/04/23 20:04
*Neglect/Abuse Screening Last Done: 10/04/23 20:04
ED- Neurological Assessment Last Done: 10/04/23 20:56
ED-Skin Assessment Last Done: 10/04/23 20:56
Discharge Date and Time
Print Language: GRENADIAN
== END 2023-10-04 22:51 | disposition home or self-care (01) ==
LOC: EMR 20:00
PROVIDERS: EMERGENCY PHYSICIAN Emergency Medicine; FAMILY PHYSICIAN Physician Assistant
DX: S00.83XA Contusion of other part of head, initial encounter (principal); W01.0XXA Fall on same level from slipping, tripping and stumbling without subsequent striking against object, initial encounter; Z23 Encounter for immunization; I10 Essential (primary) hypertension; F32.A Depression, unspecified; M06.9 Rheumatoid arthritis, unspecified; S61.012A Laceration without foreign body of left thumb without damage to nail, initial encounter; X58.XXXA Exposure to other specified factors, initial encounter
CPT/HCPCS: 99284; 90471; 70450; 90715

== ENCOUNTER → 2023-11-14 13:31 | Outpatient (REF) | payer MEDICARE, SELFPAY | LOC: WDC 13:31 | PROVIDERS: ATTENDING PHYSICIAN Obstetrics & Gynecology Gynecology; FAMILY PHYSICIAN Physician Assistant | DX: Z12.31 Encounter for screening mammogram for malignant neoplasm of breast (principal) | CPT/HCPCS: 77063; 77067 ==

== ENCOUNTER → 2023-12-12 07:19 | Outpatient (REF) | payer MEDICARE, SELFPAY ==
[2023-12-12 08:14] LABS: % Eosinophils 7.9 % (0-6); % Immature Granulocytes 0.2 % (0-0.5); % Lymphocytes 42.5 % (20.5-51.1); % Monocytes 9.6 % (1.7-9.3); % Neutrophils 38.8 % (42.2-75.2); Absolute Basophils 0.1 10^3/uL (0-0.2); Absolute Eosinophils 0.5 10^3/uL (0-0.7); Absolute Lymphocytes 2.5 10^3/uL (1.2-3.4); Absolute Monocytes 0.6 10^3/uL (0.1-0.6); Absolute Neutrophils 2.3 10^3/uL (1.4-6.5); Hematocrit 39.4 % (37.0-47.0); Hemoglobin 13.3 g/dL (12.0-16.0); Mean Corp Hgb Conc. 33.8 g/dL (33.0-37.0); Mean Corpuscular Hgb 31.3 pg (27.0-31.0); Mean Corpuscular Volume 92.7 fL (81.0-99.0); Mean Platelet Volume 10.1 fL (7.4-10.4); Nucleated Red Blood Cells % 0 %; Platelet Count 237 10^3/uL (130-400); Red Blood Cell Count 4.25 10^6/uL (4.20-5.40); Red Cell Dist. Width 13.2 % (11.5-14.5); White Blood Cell Count 5.8 10^3/uL (4.8-10.8)
[2023-12-12 08:29] LABS: Erythrocyte Sed Rate 23 mm/hour (0-20)
[2023-12-12 09:01] LABS: ALT (SGPT) 16 U/L (0-35); AST (SGOT) 29 U/L (14-36); Albumin 4.5 g/dl (3.5-5.0); Alkaline Phosphatase 60 U/L (38-126); Blood Urea Nitrogen 14 mg/dl (7-17); Calcium 9.2 mg/dl (8.4-10.2); Carbon Dioxide 25 mmol/L (22-30); Chloride 103 mmol/L (98-107); Glucose 97 mg/dl (70-99); Potassium 4.7 mmol/L (3.5-5.1); Sodium 141 mmol/L (135-145); Total Bilirubin 0.5 mg/dl (0.2-1.3); Total Protein 7.3 g/dl (6.3-8.2); eGFR > 60.00
[2023-12-12 10:05] LABS: C-Reactive Protein < 5.00 mg/L (0.0-10.00)
[2023-12-12 10:36] LABS: TSH 2.27 uIU/ml (0.47-4.68)
== END ==
LOC: REG 07:19
PROVIDERS: ATTENDING PHYSICIAN Internal Medicine Endocrinology, Diabetes & Metabolism; FAMILY PHYSICIAN Physician Assistant; REFERRING PHYSICIAN Internal Medicine Rheumatology
DX: E03.9 Hypothyroidism, unspecified (principal); M06.9 Rheumatoid arthritis, unspecified; M81.0 Age-related osteoporosis without current pathological fracture; Z79.899 Other long term (current) drug therapy
CPT/HCPCS: 36415; 80053; 84443; 85025; 85652; 86140

== ENCOUNTER → 2024-06-23 08:58 | Outpatient (REF) | payer MEDICARE, SELFPAY ==
[2024-06-23 09:47] LABS: % Basophils 0.6 % (0-2); % Eosinophils 3.1 % (0-6); % Immature Granulocytes 0.4 % (0-0.5); % Lymphocytes 13.9 % (20.5-51.1); % Monocytes 11.5 % (1.7-9.3); % Neutrophils 70.5 % (42.2-75.2); Absolute Basophils 0.1 10^3/uL (0-0.2); Absolute Eosinophils 0.3 10^3/uL (0-0.7); Absolute Lymphocytes 1.3 10^3/uL (1.2-3.4); Absolute Neutrophils 6.4 10^3/uL (1.4-6.5); Hematocrit 36.1 % (37.0-47.0); Mean Corp Hgb Conc. 33.2 g/dL (33.0-37.0); Mean Corpuscular Hgb 30.8 pg (27.0-31.0); Mean Corpuscular Volume 92.8 fL (81.0-99.0); Mean Platelet Volume 9.3 fL (7.4-10.4); Nucleated Red Blood Cells % 0 %; Platelet Count 335 10^3/uL (130-400); Red Blood Cell Count 3.89 10^6/uL (4.20-5.40); Red Cell Dist. Width 12.7 % (11.5-14.5)
[2024-06-23 10:14] LABS: ALT (SGPT) 11 U/L (0-35); AST (SGOT) 18 U/L (14-36); Albumin 3.4 g/dl (3.5-5.0); Alkaline Phosphatase 77 U/L (38-126); Blood Urea Nitrogen 13 mg/dl (7-17); Calcium 8.8 mg/dl (8.4-10.2); Carbon Dioxide 31 mmol/L (22-30); Chloride 102 mmol/L (98-107); Glucose 143 mg/dl (70-99); Potassium 3.9 mmol/L (3.5-5.1); Sodium 140 mmol/L (135-145); Total Bilirubin 0.5 mg/dl (0.2-1.3); Total Protein 6.7 g/dl (6.3-8.2); eGFR > 60.00
[2024-06-23 10:32] LABS: Vitamin D, 25-OH*** 40.4 ng/mL (30-80)
[2024-06-23 14:30] LABS: Erythrocyte Sed Rate 67 mm/hour (0-20)
[2024-06-25 05:29] LABS: Quantiferon Mitogen minus NIL 8.57 IU/mL; Quantiferon NIL 0.07 IU/mL; Quantiferon Plus TB1 minus NIL 0.01 IU/mL (<=0.34); Quantiferon Plus TB2 minus NIL 0.01 IU/mL (<=0.34); Quantiferon TB Gold Plus Negative (Negative)
== END ==
LOC: REG 08:58
PROVIDERS: ATTENDING PHYSICIAN Internal Medicine Rheumatology; FAMILY PHYSICIAN Physician Assistant
DX: E55.9 Vitamin D deficiency, unspecified (principal); M06.9 Rheumatoid arthritis, unspecified; Z11.1 Encounter for screening for respiratory tuberculosis; Z79.899 Other long term (current) drug therapy
CPT/HCPCS: 36415; 80053; 82306; 85025; 85652; 86140; 86480

== ENCOUNTER → 2024-07-03 15:48 | Outpatient (REF) | payer MEDICARE, SELFPAY | LOC: REG 15:48 | PROVIDERS: ATTENDING PHYSICIAN Family Medicine | DX: R05.9 Cough, unspecified (principal) | CPT/HCPCS: 71046 ==

== ENCOUNTER → 2024-07-13 14:04 | Outpatient (REF) | payer MEDICARE, SELFPAY | LOC: RAD 14:04 | PROVIDERS: ATTENDING PHYSICIAN Internal Medicine Rheumatology; FAMILY PHYSICIAN Family Medicine | DX: M06.9 Rheumatoid arthritis, unspecified (principal); M15.9 Polyosteoarthritis, unspecified; M54.6 Pain in thoracic spine; M81.0 Age-related osteoporosis without current pathological fracture | CPT/HCPCS: 72070; 72100 ==

== ENCOUNTER → 2024-07-19 10:40 | Outpatient (REF) | payer MEDICARE, SELFPAY | LOC: RAD 10:40 | PROVIDERS: ATTENDING PHYSICIAN Family Medicine | DX: J18.9 Pneumonia, unspecified organism (principal) | CPT/HCPCS: 71046 ==

== ENCOUNTER → 2024-07-20 14:12 | Outpatient (REF) | payer MEDICARE, SELFPAY | LOC: RAD 14:12 | PROVIDERS: ATTENDING PHYSICIAN Family Medicine | DX: J18.1 Lobar pneumonia, unspecified organism (principal) | CPT/HCPCS: 71260; Q9967 ==

== ENCOUNTER → 2024-07-20 14:19 | Outpatient (REF) | payer MEDICARE, SELFPAY ==
[2024-07-20 16:50] LABS: HDL Cholesterol 37 mg/dl; LDL Cholesterol, Calculated 74 mg/dl; Total Cholesterol 139 mg/dl (50-199); Triglyceride 140 mg/dl (10-149); Very Low Density Lipoprotein 28 mg/dl (0-30)
[2024-07-21 10:35] LABS: Glycohemoglobin (HgbA1c) 6.3 % (4.0-5.6)
== END ==
LOC: REG 14:19
PROVIDERS: ATTENDING PHYSICIAN Family Medicine
DX: I10 Essential (primary) hypertension (principal); R73.01 Impaired fasting glucose
CPT/HCPCS: 36415; 80061; 83036

== ENCOUNTER 2024-08-06 06:10 | Day surgery (SDC) | payer MEDICARE, SELFPAY ==
[2024-08-01 11:59] LABS: INR 1.12
[2024-08-01 12:00] LABS: APTT 33.3 Sec (23.4-35.0)
[2024-08-01 12:55] LABS: Blood Urea Nitrogen 25 mg/dl (7-17); Calcium 8.9 mg/dl (8.4-10.2); Carbon Dioxide 27 mmol/L (22-30); Chloride 100 mmol/L (98-107); Glucose 121 mg/dl (70-99); Potassium 4.6 mmol/L (3.5-5.1); Sodium 137 mmol/L (135-145); eGFR > 60.00
[2024-08-01 13:44] VITALS: BMI 17.8
[2024-08-01 14:06] LABS: Hematocrit 33.4 % (37.0-47.0); Hemoglobin 10.7 g/dL (12.0-16.0); Mean Corpuscular Hgb 29.2 pg (27.0-31.0); Mean Corpuscular Volume 91.3 fL (81.0-99.0); Mean Platelet Volume 9.6 fL (7.4-10.4); Platelet Count 530 10^3/uL (130-400); Red Blood Cell Count 3.66 10^6/uL (4.20-5.40); Red Cell Dist. Width 14.3 % (11.5-14.5); White Blood Cell Count 14.7 10^3/uL (4.8-10.8)
[2024-08-06] VITALS (11 sets, daily range): BP systolic 107–158; BP diastolic 51–83; BMI 17.8; BMI 18.5
--- NOTE | 2024-08-06 11:15 | PTCARENOTE ---
Patient not given Albuterol because it causes coughing and gagging. Dr. Kee aware and cancelled order for Albuterol. Will monitor patient.
[2024-08-06] MEDS: TYLENOL 650 MG PO (16:22)
== END 2024-08-06 16:32 | disposition home or self-care (01) ==
LOC: SDS 06:10
PROVIDERS: ATTENDING PHYSICIAN Internal Medicine Critical Care Medicine; FAMILY PHYSICIAN Family Medicine
DX: R91.8 Other nonspecific abnormal finding of lung field (principal); D84.9 Immunodeficiency, unspecified; J18.9 Pneumonia, unspecified organism; M06.9 Rheumatoid arthritis, unspecified; J84.10 Pulmonary fibrosis, unspecified; J41.1 Mucopurulent chronic bronchitis
CPT/HCPCS: 31629; 31628; 31624; 31623; 31627; 31654; 88173; 88305; 88312; 36415; 71045; 76000; 80048; 85027; 85610; 85730; 87070; 87077; 87102; 87116; 87186; 87205; 87252; 87496; 87529; 88112; 88333; 88334; 88341; 88342; 93005; C1887

== ENCOUNTER 2024-08-09 23:56 | Inpatient (IN) | payer MEDICARE, SELFPAY ==
[2024-08-09 20:57] VITALS: BP 127/79
[2024-08-09 21:13] VITALS: BMI 19.1
--- NOTE | 2024-08-09 21:17 | ED.GENMED ---
History of Present Illness
General
Chief Complaint: Breathing Problem
Source: patient
Exam Limitations: none
Time Seen by Provider: 08/09/24 21:06
Nursing documentation reviewed up to this point in time: agreed with
History of Present Illness
History of Present Illness:
Patient to ED wit complaint of worsening SOB. States she has been dealing with cough and SOB for the past 2mos. She had a bronchoscopy on Tuesday. She was called today and told she has a bacterial infection (pseudomonas). Started on po Levaquin.
She had 1 dose at 5PM tonight. States she continues to feel worse. Feels increasingly SOB and cant manage at home. brought to ED by family for eval.
Past History
Past History
ED Past Medical History: HTN, Hypothyroidism, Psychiatric (anxiety depression) and Other (Rheumatoid arthritis, hypertension, Narcolepsy)
Social History
Tobacco: Non-smoker
Alcohol: None
Drug: None
Personal:
Living: alone
Employment: Employed
Family History
Family History: Other (Noncontributory)
Review of Systems
Review of Systems
Allergies reviewed?: Yes
All Other Systems: ROS reviewed and negative except as documented in HPI and ROS
Constitutional: Reports fatigue
EENT: Reports no symptoms
Respiratory: Reports cough and trouble breathing
Cardiac: Reports no symptoms
ABD/GI: Reports no symptoms
: Reports no symptoms
Musculoskeletal: Reports no symptoms
Skin: Reports no symptoms
Neurological: Reports weakness
Psychiatric: Reports no symptoms
Phy Exam
General Physical Exam
General Presentation: well appearing and no apparent distress
General age: appears stated age
General Skin: warm and dry
General Habitus: normal
Cardiovascular Exam
Cardiovascular Exam: regular rate/rhythm and no edema
Pulmonary Exam
Pulmonary Exam: decreased breath sounds (Decreased BS bilateral bases. No wheezing, no rhonchi)
Musculoskeletal Exam
Musculoskeletal Exam: full ROM and neuro vasc intact
Skin Exam
Skin Exam: normal color, warm/dry and no rash
Psychiatric Exam
Psychiatric Exam: normal mood/affect
Scores
Heart Failure Risk
Heart Failure Risk Score: Not Applicable
Course
Orders/Labs/Results
Orders:
Orders
08/09/24 21:07
CR Chest - 2 Views Urgent
Comment:
Reason For Exam: cough, SOB
08/09/24 21:27
Complete Blood Count/With Diff Urgent
Comprehensive Metabolic Panel Urgent
08/09/24 21:59
Acetaminophen [Tylenol] 1,000 mg PO NOW STA
08/09/24 23:00
Flush (0.9% Sodium Chloride) [Flush (Nss)] See Dose Instructions IV PER PROTOCOL
08/09/24 23:11
Procalcitonin Urgent
If negative, will antibiotics be d/c'd or not started: Yes
Does the patient have renal or hepatic impairment?: No
Any recent (w/in 48 hrs) physiologic stress (CPR, rhabdo): No
08/09/24 23:49
Admit/Transfer Patient As Directed
Co-Sign Provider:
Level of Care: Inpatient admission
Assign to:: Medical/Surgical
Physician / Group: Emerson Fernandez
Diagnosis: Pseudomonas from Lt LL BAL Culture
Reason for Hospitalization: Pseudomonas from Lt LL BAL Culture
Expected length of stay greater than two midnights?: Yes
ELOS- Estimated Length of Stay in days: 3
I certify the patient meets the requirements for IP care: Yes
PRN Pain Medication Management As Directed
May give lesser potent ordered pain med per pt: Yes
preference::
Protocol:: Medication orders for pain may be administered in a
manner that supports deferring to patient preference
when the pt is:
- Requesting an ordered lesser potent pain medication.
Least to most potent pain medications are defined
as: acetaminophen < NSAID < tramadol < opioids
(morphine, oxycodone, hydromorphone).
- Requesting a lesser dose of the same medication IF
ORDERED.
- Requesting a less intrusive route of administration
if both routes are prescribed by the provider (PO <
IV).
08/09/24 23:50
Code Status As Directed
Resuscitation Status: Full Code
Abnormal Lab Results
08/09/24
21:27
WBC 13.0 H 10^3/uL
(4.8-10.8)
RBC 3.14 L 10^6/uL
(4.20-5.40)
Hgb 9.2 L g/dL
(12.0-16.0)
Hct 27.6 L %
(37.0-47.0)
RDW 14.6 H %
(11.5-14.5)
Plt Count 447 H 10^3/uL
(130-400)
Abs Immat Gran (auto) 0.1 H 10^3/uL
(0-0.05)
Absolute Neuts (auto) 10.3 H 10^3/uL
(1.4-6.5)
Absolute Monos (auto) 1.0 H 10^3/uL
(0.1-0.6)
Neutrophils % 79.1 H %
(42.2-75.2)
Lymphocytes % 11.7 L %
(20.5-51.1)
Sodium 134 L mmol/L
(135-145)
BUN 23 H mg/dl
(7-17)
Glucose 103 H mg/dl
(70-99)
Albumin 3.1 L g/dl
(3.5-5.0)
08/09/24 21:27
08/09/24 21:27
Vital Signs
Initial and Last Documented VS:
Initial Vital Signs
Temp Pulse Resp BP Pulse Ox
99.1 F 91 16 127/79 95
08/09/24 20:57 08/09/24 20:57 08/09/24 20:57 08/09/24 20:57 08/09/24 20:57
Last Documented Vital Signs
Temp Pulse Resp BP Pulse Ox
99.1 F 91 16 127/79 95
08/09/24 20:57 08/09/24 20:57 08/09/24 20:57 08/09/24 20:57 08/09/24 23:15
*Radiology
Radiology exam reviewed: radiology read reviewed
*Pulse Oximetry
Patient hypoxic: no
*Critical Care Note
Total Time (30-74mins, 75-104mins- exclusive of procedures): Not Applicable
Update Note
Update Note:
Patient to ED with complaint of worsening SOB and cough. SHe had a bronchoscopy on Tuesday Called today and placed on Levaquin for pseudomonas but feels that she is having worsening SOB, cough and can not manage at home. She is afebrile. Pulse ox
96%RA CXR with RUL pneumonia noted. Will admit to hospitalist
ED Attending Note
-
Portions of this chart may have been created with voice recognition software.� Occasional wrong word or��sound alike� substitutions may have occurred due to the inherent limitations of voice recognition software.
Discharge Plan
Departure
Patient Disposition: Admit
Date of Disposition: 08/09/24
Time of Disposition: 22:45
Presentation/result/management discussed w/ accepting MD/DO: Hospitalist
Condition: Fair
Covid-19: Not Applicable
Discharge Problem:
Pneumonia
Interventions
Interventions:
*Risk Screen - Suicide Last Done: 08/09/24 20:57
*General Assessment Last Done: 08/09/24 20:57
*Neglect/Abuse Screening Last Done: 08/09/24 20:57
*ED- Fall Risk Assessment Last Done: 08/09/24 21:14
*ED COVID-19 Vaccine History Last Done: 08/09/24 21:14
ED- Cardiac Assessment Last Done: 08/09/24 21:14
ED- Pulmonary Assessment Last Done: 08/09/24 21:14
[2024-08-09 21:39] LABS: % Basophils 0.2 % (0-2); % Eosinophils 0.9 % (0-6); % Immature Granulocytes 0.5 % (0-0.5); % Lymphocytes 11.7 % (20.5-51.1); % Monocytes 7.6 % (1.7-9.3); % Neutrophils 79.1 % (42.2-75.2); Absolute Eosinophils 0.1 10^3/uL (0-0.7); Absolute Immature Granulocytes 0.1 10^3/uL (0-0.05); Absolute Lymphocytes 1.5 10^3/uL (1.2-3.4); Absolute Neutrophils 10.3 10^3/uL (1.4-6.5); Hematocrit 27.6 % (37.0-47.0); Hemoglobin 9.2 g/dL (12.0-16.0); Mean Corp Hgb Conc. 33.3 g/dL (33.0-37.0); Mean Corpuscular Hgb 29.3 pg (27.0-31.0); Mean Corpuscular Volume 87.9 fL (81.0-99.0); Mean Platelet Volume 8.6 fL (7.4-10.4); Nucleated Red Blood Cells % 0 %; Platelet Count 447 10^3/uL (130-400); Red Blood Cell Count 3.14 10^6/uL (4.20-5.40); Red Cell Dist. Width 14.6 % (11.5-14.5)
[2024-08-09 21:52] LABS: ALT (SGPT) 10 U/L (0-35); AST (SGOT) 15 U/L (14-36); Albumin 3.1 g/dl (3.5-5.0); Alkaline Phosphatase 52 U/L (38-126); Blood Urea Nitrogen 23 mg/dl (7-17); Calcium 8.8 mg/dl (8.4-10.2); Carbon Dioxide 29 mmol/L (22-30); Chloride 101 mmol/L (98-107); Estimated Creatinine Clearance 49 ml/min; Glucose 103 mg/dl (70-99); Potassium 4.5 mmol/L (3.5-5.1); Sodium 134 mmol/L (135-145); Total Bilirubin 0.3 mg/dl (0.2-1.3); Total Protein 6.4 g/dl (6.3-8.2); eGFR > 60.00
[2024-08-09] MEDS: TYLENOL 1000 MG PO (22:02)
--- NOTE | 2024-08-09 22:52 | HPS.HSE ---
Family Physician
-
Family Physician: Joy Capps
Chief Complaint
-
shortness of breath
History of Present Illness
Patient is a 78-year-old female with past medical history significant for rheumatoid arthritis, hypertension, hypothyroidism, narcolepsy and anxiety/depression who presented to [facility] ED for evaluation of shortness of breath. Patient states she has
had shortness of breath and cough for the past 2 months, she reports recently has been feeling more short of breath. She had a bronchoscopy performed out patient on Tuesday and was notified today she had pseudomonas infection and was started on
Levaquin. She took first dose at approximately 1700. She is reporting she is feeling worse with increased shortness of breath and can not manage at home. Patient reports cough has been productive and a bit dry since Tuesday, today she has had small
amounts of production with hemoptysis. Denies any fever, chills, chest pain, nausea, vomiting, constipation, diarrhea or urinary symptoms.
Medical History
Past Medical History
Past Medical History: Reports Other
Additional Past Medical History:
rheumatoid arthritis
hypertension
hypothyroidism
narcolepsy
anxiety/depression
Past Surgical History: Reports Other
Additional Past Surgical History:
Salivary gland bx
LPS- BTL
LT arm surgery
RT knee surgery
cataract extraction
Social History
Tobacco: Non-smoker
Alcohol: None
Drug: None
Family History
Family History: Not pertinent
Allergies / Home Medications
Allergies reflects when Allergies were last updated in [employer].
Home Medications with original date entered in [employer]
Allergy/Medication List:
Allergies
Allergy/AdvReac Type Severity Reaction Status Date / Time
albuterol AdvReac Vomiting Verified 08/09/24 21:00
Home Medications
escitalopram oxalate 20 mg tablet 40 mg PO DAILY Depression 10/10/15
armodafinil 150 mg tablet 150 mg PO DAILY narcolepsy 07/03/23
coenzyme Q10 100 mg capsule (CoQ-10) 200 mg PO Q48H Supplement 07/03/23
levothyroxine 75 mcg tablet 75 mcg PO DAILY Thyroid 07/03/23
losartan 100 mg tablet 100 mg PO DAILY Blood Pressure #1 tab 07/08/23
acetaminophen 325 mg tablet 650 mg PO Q6H PRN Pain 08/02/24
albuterol sulfate 90 mcg/actuation aerosol inhaler 2 puff inhalation PRN PRN Cough 08/02/24
amlodipine 2.5 mg tablet 2.5 mg PO DAILY 08/02/24
Review of Systems
-
History Source: Patient
Constitutional: Reports Fatigue and Night Sweats
Respiratory: Reports Cough, Hemoptysis and Trouble Breathing (shortness of breath )
Physical Exam
Vital Signs
Vital Signs
Temp Pulse Resp BP Pulse Ox
99.1 F 91 16 127/79 97
08/09/24 20:57 08/09/24 20:57 08/09/24 20:57 08/09/24 20:57 08/09/24 22:00
Physical Exam
General: Well Developed, Well Nourished and Conversant
HEENT: NormoCephalic, Moist mucous membranes, Atraumatic, Nose Appears Normal, Ears Appear Normal and Hearing Impaired
Respiratory: Clear and Decreased Breath Sounds
Cardiac: S1/S2 and Regular Rhythm
Breast: Deferred by me
GI: Soft, Non Tender, Non Distended and Normal Bowel Sounds; No Organomegaly
Rectal: Deferred by Provider
Genito-urinary: Deferred by me
Musculoskeletal: No Clubbing, No Cyanosis and No Edema
Skin: Warm and IV/Catheter Site
Neuro: Awake, Alert, AO x 3 and Nonfocal/grossly intact
Psych: Calm and Intact Judgment/Insight
Laboratory Results
-
08/09/24 21:27
08/09/24 21:27
Laboratory Results
Total Bilirubin 0.3 mg/dl (0.2-1.3) 08/09/24 21:27
AST 15 U/L (14-36) 08/09/24 21:27
ALT 10 U/L (0-35) 08/09/24 21:27
Alkaline Phosphatase 52 U/L (38-126) 08/09/24 21:27
Data Reviewed
-
Diagnostic Radiology: Report Reviewed by me (CXR: Focal rounded opacity within the right upper lobe appears to be slightly larger than examination of July 19, 2024. Patchy opacity within the left lower lung, similar to recent examinations. Small
nodular opacities within the right lower lung, also similar to recent examinations. Main differenti)
Lab Data: Labs Reviewed by me (WBC 13.0, Neut 79.1, hgb 9.2, hct 27.6)
Old Records: Reviewed
Impression/Plan
-
IMPRESSION/PLAN:
#Pseudomonas from Lt LL BAL Culture
Pseudomonas colonization vs. Pseudomonas PNA vs. non infective origin
WBC 13.0, Neut 79.1
CXR: Focal rounded opacity within the right upper lobe appears to be slightly larger than examination of July 19, 2024.
Patchy opacity within the left lower lung, similar to recent examinations. Small nodular opacities within the right lower lung, also similar to recent examinations.
Main differential considerations of focal areas of pneumonia and/or neoplasia
No evidence for pneumothorax.
- Admit to med/surg
- Consult Pulmonary
- Consult ID
- hold antibiotics for Procal results
- Mucinex BID
- PRN antitussive
- supportive care
#anemia
hgb 9.2, hct 27.6
- monitor CBC
#rheumatoid arthritis
on Remicade, last infusion >8 weeks ago
is on 8 week cycle, last infusion canceled r/t cough and concern for PNA
- continue to follow up out patient
#hypertension
- continue amlodipine and losartan
#hypothyroidism
- continue levothyroxine
#narcolepsy
- continue armodafinil PRN
#anxiety/depression
- continue escitalopram
Code status: full code
DVT prophylaxis: Lovenox sq
--- NOTE | 2024-08-09 23:06 | W.PN.UPDATE ---
Update Note
Progress Note Update
This note serves as an addendum to the H&P by staff occupational therapist IZABEL
Jolanta Marcial
HPI
78F Non smoker HX Rheumatoid arthritis, hypertension, Narcolepsy, HTN, Hypothyroidism, brought to ED by family for eval:
- report cough and SOB for the past 2mos.
- s/p bronchoscopy on Sunday 08/06 - She was called today and told she has a bacterial infection (pseudomonas)
- Started on po Levaquin first dose 1 dose at 5PM tonight.
- she continues to feel worse. Feels increasingly SOB and cant manage at home.
Vital Signs
Temp Pulse Resp BP Pulse Ox
99.1 F 91 16 127/79 97
08/09/24 20:57 08/09/24 20:57 08/09/24 20:57 08/09/24 20:57 08/09/24 22:00
PE
Gen: not toxic
HEENT: anicteric
Neck: supple
Lungs: Decreased BS bilateral bases. No wheezing, no rhonchi
Cor: RRR S1 S2
Abdomen: soft abdomen
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
MS: no edema
Psych: normal mood/affect
Las
08/01/24 08/09/24
10:18 21:27
WBC 14.7 H 13.0 H
Hgb 10.7 L 9.2 L
Plt Count 530 H 447 H
Sodium 134 L
BUN 23 H
Creatinine 0.7
eGFR > 60.00
08/09/24 CXR:
- Focal rounded opacity within the right upper lobe appears to be slightly larger than examination of July 19, 2024.
- Patchy opacity within the left lower lung, similar to recent examinations.
- Small nodular opacities within the right lower lung, also similar to recent examinations.
- Main differential considerations of focal areas of pneumonia and/or neoplasia
- No evidence for pneumothorax.
5/19/25 Bronchoscopy report reviewed
- Right upper lobe mass
- Left lower lobe nodule
- Right middle lobe nodule
- Unresolving bilateral infiltrates
- Immune compromised with pneumonia
08/06/24 Micro of Bronch spec Cx
- POS Pseudomonas from Lt LLL
- pending fungal and AFB cx
Last hospitalist admission: 07/04/23 - 07/08/23
DC DXs: Legionella Pneumonia
ASSESSMENT & PLAN
Pending Rx reconciliation
Immunosuppressed host on Remicade fr RA
POS Pseudomonas from Lt LL BAL Culture
CXR suggest interval increase in size of Rt UL opacity
Unresolving bilateral infiltrates
Bothersome cough
DDX: Pseudomonas colonization vs. Pseudomonas PNA vs. non infective origin
- Recent Legionella PNA s/p PO Azithromycin
- check procalcitonin till then hold of ABx for now
- Mucinex
- PRN antitussives
- ID consult
Right upper lobe mass
Right middle lobe nodule
Left lower lobe nodule
- s/p Bronchoscopy
- Await BAL, biopsy, brushing, culture, cytology and flow results.
- Pul consult
HX Subjective balance dysfunction and word finding difficulty in last admission
Associated posture especially standing or walking
-suspect TME 2/2 above
-head CT - no acute event
-s/p MRI without acute abnormality
- PT/OT
HX RA on Remicade - infusion every 8 weeks - she cannot recall when was the last dose
HX Narcolepsy on Armodafinil
Depression on SSRI
DVT Px: LMWH
Code: Full code
IP MS
[2024-08-10 00:02] LABS: Procalcitonin < 0.05 ng/ml (0.0-0.25)
[2024-08-10 01:26] VITALS: BP 148/91
--- NOTE | 2024-08-10 01:30 | PTCARENOTE ---
Pt received from ED at 0115. Pt pleasant, AAOx3, VSS, and able to ambulate into room with assistance. Pt absent of pain at this time. Daughter at bedside. Pt receptive to room and call pedro. Pt bed in lowest position and call pedro within reach. Pt
educated on importance of call pedro usage, pt relays understanding and cooperation. Will continue with current plan of care.
[2024-08-10] MEDS: ROBITUSSIN AC 10 ML PO ×2 (01:57→06:38)
[2024-08-10] MEDS: TYLENOL 650 MG PO (02:05)
[2024-08-10] MEDS: SYNTHROID 75 MCG PO (05:01)
[2024-08-10 06:00] VITALS: BMI 18.3
[2024-08-10 07:20] VITALS: BP 129/60
[2024-08-10 08:01] LABS: Hematocrit 29.4 % (37.0-47.0); Hemoglobin 9.8 g/dL (12.0-16.0); Mean Corp Hgb Conc. 33.3 g/dL (33.0-37.0); Mean Corpuscular Hgb 29.2 pg (27.0-31.0); Mean Corpuscular Volume 87.5 fL (81.0-99.0); Mean Platelet Volume 8.8 fL (7.4-10.4); Platelet Count 480 10^3/uL (130-400); Red Blood Cell Count 3.36 10^6/uL (4.20-5.40); Red Cell Dist. Width 14.6 % (11.5-14.5); White Blood Cell Count 13.5 10^3/uL (4.8-10.8)
[2024-08-10] MEDS: COZAAR 100 MG PO (08:59)
[2024-08-10] MEDS: MUCINEX 600 MG PO (08:59)
[2024-08-10] MEDS: NORVASC 2.5 MG PO (09:00)
[2024-08-10] MEDS: LEXAPRO 30 MG PO (09:00)
[2024-08-10 09:03] LABS: Blood Urea Nitrogen 17 mg/dl (7-17); Calcium 8.6 mg/dl (8.4-10.2); Carbon Dioxide 27 mmol/L (22-30); Chloride 104 mmol/L (98-107); Estimated Creatinine Clearance 47 ml/min; Glucose 132 mg/dl (70-99); Potassium 4.6 mmol/L (3.5-5.1); Sodium 137 mmol/L (135-145); eGFR > 60.00
[2024-08-10 09:45] LABS: Hepatitis C Antibody Negative (Negative)
--- NOTE | 2024-08-10 10:17 | CON.PUL ---
Consultation
Consultation Request
Date/Time Consultation Requested: 08/10/24
Date/Time Consultation Performed: 08/10/24
Performing Provider: Ermias
Reason for Consultation: SOB/PNA
Medical History
-
History of Present Illness:
Patient is a 78-year-old female with past medical history significant for rheumatoid arthritis, hypertension, hypothyroidism, narcolepsy and anxiety/depression presenting to ED for evaluation of shortness of breath. Patient has a history of
nodules and bronchiectasis (followed by Dr Xie) recently had a bronchoscopy 08/06 which was negative for malignancy but showed positive cultures for pseudomonas. She was given an OP course of LVQ but she proceeded to come to ER for IV abx.
Ongoing cough with productive mucus. CXR showing stable nodule/findings.
Past Medical History
Past Medical History: Other (see list below)
Social History
Tobacco: Non-smoker
Alcohol: None
Drug: None
Family History
Family History: Reviewed & Not Pertinent
Allergies / Home Medications
Allergies
Allergy/AdvReac Type Severity Reaction Status Date / Time
albuterol AdvReac Vomiting Verified 08/09/24 21:00
Home Medications
�Medication �Instructions �Recorded �Confirmed �Last Taken �Type
escitalopram oxalate 20 mg tablet 30 mg PO DAILY Depression 10/10/15 08/09/24 08/09/24 History
armodafinil 150 mg tablet 150 mg PO DAILY PRN narcolepsy 07/03/23 08/09/24 08/09/24 History
levothyroxine 75 mcg tablet 75 mcg PO DAILY Thyroid 07/03/23 08/09/24 08/09/24 History
losartan 100 mg tablet 100 mg PO DAILY Blood Pressure #1 07/08/23 08/09/24 08/09/24 Rx
tab
acetaminophen 325 mg tablet 650 mg PO Q6H PRN Pain 08/02/24 08/09/24 08/06/24 04:00 History
amlodipine 2.5 mg tablet 2.5 mg PO DAILY Blood Pressure 0508/09/24 08/09/24 History
infliximab 100 mg intravenous mg IV Anti-Inflammatory 08/09/24 Unknown History
solution (Remicade)
lidocaine 4 % topical patch 1 patch topical DAILY PRN right 08/09/24 08/09/24 Unknown History
(Lidocaine Pain Relief) shoulder pain
Review of Systems
-
History Source: Patient
All other systems: Negative unless noted
Vitals / Labs / Diagnostic Testing
Vital Signs
Temp Pulse Resp BP Pulse Ox
99.1 F 67 18 129/60 94
08/10/24 07:20 08/10/24 07:20 08/10/24 07:20 08/10/24 07:20 08/10/24 07:20
Lab Data
08/10/24 07:30
08/10/24 07:30
Diagnostic Testing:
Physical Exam
-
HEENT: Normocephalic, Anicteric and Moist Mucous Membranes
Cardiovascular: S1/S2 and Regular Rhythm
Respiratory: Clear and Non-Labored Respirations
GI: Soft, Non Distended and Non Tender
Neurology: Awake, Alert, Oriented and No Motor Deficits
Skin: Warm, Dry and Good Color
General: Comfortable and Other (NAD)
Assessment
-
Patient is a 78-year-old female with past medical history significant for rheumatoid arthritis, hypertension, hypothyroidism, narcolepsy and anxiety/depression presenting to ED for evaluation of shortness of breath. Patient has a history of
nodules and bronchiectasis (followed by Dr Xie) recently had a bronchoscopy 08/06 which was negative for malignancy but showed positive cultures for pseudomonas. She was given an OP course of LVQ but she proceeded to come to ER for IV abx.
Ongoing cough with productive mucus. CXR showing stable nodule/findings. We are consulted for evaluation 08/10/24.
Pseudomonas PNA
Pulmonary nodules s/p/ bronchoscopy 08/06, cyto neg
Bronchiectasis
History of NTM
Leukocytosis
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
Postmenopausal osteoporosis
Rheumatoid arthritis
Essential hypertension
Narcolepsy without cataplexy
Acquired hypothyroidism
Plan
No significant hypoxemia noted on arrival, >90% sat on RA
There is no known history of O2 use at home
There is known prior history of lung disease including nodules/bronchiectasis
Recent bronch report reviewed showing pseudomonas, agree with 14 day PO LVQ course
She has galvan sensitive bacteria, there is no benefit for IV vs PO in this situation
We had a long discussion on the importance of airway clearance
Reviewed various treatments/techniques that can be employed
Can review as an OP and complete at home as well
Encouraged ambulation, hydration
CXR/CT obtained indicating stable opacities
Other past imaging reviewed for comparison
ECHO results in past reviewed, stable findings
No active issues
Will need outpatient pulmonary evaluation in our office including PFTs and 6MWT
Reviewed with patient
She has appt wt Dr Xie in 2 weeks, keep appt
Discharge planning per team, she requested home care
Reviewed with team
Diagnostic Data
CXR 08/09/24- Focal rounded opacity within the right upper lobe appears to be slightly larger than examination of July 19, 2024. Patchy opacity within the left lower lung, similar to recent examinations. Small nodular opacities within the right lower
lung, also similar to recent examinations. Main differential considerations of focal areas of pneumonia and/or neoplasia. No evidence for pneumothorax.
08/06/24- No pneumothorax. Persistent opacities projecting over the lateral right upper lung and left lower lung.
CT CHEST 07/20/24- Within the right upper lobe, there is a lobulated soft tissue mass which measures 3.4 x 3.7 x 3.5 cm. Margins are somewhat ill-defined, and a tail of soft tissue extends along the adjacent bronchus. Small daughter nodules are seen
within the right upper lobe on image 27, measuring up to 5 mm in diameter. Additional right upper lobe nodule on image 16 measures 5 mm in diameter. Right upper lobe nodule on image 24 measures 6 mm in diameter. Multiple additional nodules are seen
within the right middle lobe, including a 1.5 cm nodule on series 201 image 34. Multiple right lower lobe pulmonary nodules measure up to 1.6 cm in diameter, best seen on series 201 image 48. Multiple left upper lobe nodules measure up to 1.2 cm in
diameter. Left lower lobe nodules measure up to 2.4 cm in diameter. No pleural effusion or pneumothorax is appreciated.
PET/CT 08/02/24- There are numerous hypermetabolic nodules/masses within the lungs bilaterally. There is a 2.9 x 2.6 cm nodule within the lateral right upper lobe which demonstrates a max SUV of 8.2 on initial imaging and 8.9 on delayed imaging. This
appears to extend to the right mainstem bronchus. There is a consolidation within the medial right lower lobe which some adjacent max SUV of 6.4 on initial imaging and 7.0 on delayed imaging. There is a 1.6 x 1.3 cm nodule within the left lower lobe
infiltrates a max SUV of 5.4 on initial imaging and 5.6 on delayed imaging.
ECHO 04/12/23- Normal left ventricular size, wall thickness and systolic function. LV ejection fraction is 60-65%. Aortic sclerosis without stenosis. No significant change since the prior study of 2020.
PFT 07/24/24 Spirometry FVC 1.80 or 69%, FEV1 1.24 or 68%, Ratio 68 (moderate obstruction)
Prior PFT in September 2015 was normal.
Reports and relevant images were personally reviewed.
-----
Total time spent on this consultation _75__ minutes which includes review of history, physical exam, medications, laboratory data, personal review of imaging, extensive review of outpatient records, and discussions with care team.
[2024-08-10 10:34] VITALS: BMI 18.3
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
--- NOTE | 2024-08-10 13:18 | CON.ID ---
Consultation
-
Date/Time Consultation Requested: 08/10/2024 0124
Date/Time Consultation Performed: 08/10/2024 1231
Requesting Provider: Alisha Marcial
Performing Provider: Dr. Perry
Reason for Consultation: Pneumonia
Chief Complaint / Past History
History of Present Illness
Marycruz Quintero is a 78-year-old female with a significant past medical history of rheumatoid arthritis (on Remicade every 8 weeks) being evaluated at the request of Alisha Marcial regarding pneumonia. History is obtained from chart review, along
with patient interview. Additional history was provided by the patient's daughter and nurse advocate who are at the bedside.
The patient reports that she has had a cough for at least the past 2 months and has been followed by Rheumatology and Pulmonary. She was diagnosed with pneumonia approximately 1 month ago and placed on a course of doxycycline without significant
improvement. Repeat imaging suggested nodularity, and ultimately the patient underwent PET scanning which revealed increased uptake. She underwent a bronchoscopy on 08/06/2024 for biopsy of concerning areas. Culture at that time revealed
Pseudomonas, and the patient was placed on course of Levaquin 2 days ago. Yesterday she presented to the hospital secondary to increasing shortness of breath. She admits ongoing yellow sputum. She denies any fevers, but notes significant overall
lethargy.
Past History
Additional Past Medical History:
RA
HTN
Past Surgical History: None
Additional Past Surgical History:
Bronchoscopy
Allergy History:
albuterol Adverse Reaction (Verified 08/09/24 21:00)
Vomiting
Medications Reviewed: Yes
Current Antibiotics:
Levofloxacin
Social History
Tobacco: Non-Smoker
Alcohol: Occasional
Drug: None
Living: Alone
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
Family History
Family History: Not Pertinent
Review of Systems
Vital Signs
Temp Pulse Resp BP Pulse Ox
99.1 F 67 18 129/60 94
08/10/24 07:20 08/10/24 07:20 08/10/24 07:20 08/10/24 07:20 08/10/24 07:20
Physical Exam
Physical Exam
Constitutional: No Acute Distress, Comfortable, Chronically Ill, Non-toxic and Cachetic (mild)
Eyes: No Conjunctival Hemorrhage and Sclera Anicteric
Oral: No Thrush and No Ulcers
Cardiovascular: S1/S2; Negative S3/S4 or Murmur
Pulmonary: Symmetric, Coarse and Non Labored; Negative Wheezes
Gastrointestinal: Soft, Non Tender and Non Distended
Extremities: Negative Edema, Cyanosis or Erythema
Skin: Warm and Dry; Negative Rash or Jaundice
Neurological: Awake and Alert
Psychological: Calm
Lab / Diagnostic Study Results
08/10/24 07:30
08/10/24 07:30
Abs Immat Gran (auto) 0.1 10^3/uL (0-0.05) H 08/09/24 21:27
Absolute Neuts (auto) 10.3 10^3/uL (1.4-6.5) H 08/09/24 21:27
Absolute Lymphs (auto) 1.5 10^3/uL (1.2-3.4) 08/09/24 21:27
Absolute Monos (auto) 1.0 10^3/uL (0.1-0.6) H 08/09/24 21:
Absolute Basos (auto) 0.0 10^3/uL (0-0.2) 08/09/24 21:27
Immature Gran % 0.5 % (0-0.5) 08/09/24 21:27
Neutrophils % 79.1 % (42.2-75.2) H 08/09/24 21:27
Lymphocytes % 11.7 % (20.5-51.1) L 08/09/24:
Monocytes % 7.6 % (1.7-9.3) 08/09/24 21:27
Eosinophils % 0.9 % (0-6) 08/09/24 21:27
Basophils % 0.2 % (0-2) 08/09/24 21:27
Procalcitonin < 0.05 ng/ml (0.0-0.25) 08/09/24 23:11
Microbiology Results
Respiratory Culture Final 08/06/24
Moderate Pseudomonas aeruginosa
No Usual Respiratory Fauzia
Organism 1 Pseudomonas aeruginosa
1. Pseudomonas aeruginosa
M.I.C. RX
--------- ---
Aztreonam 8 S
Cefepime <=2 S
Ceftazidime 4 S
Ciprofloxacin 0.5 S
Meropenem <=1 S
Piperacillin/Tazobactam <=8 S
Tobramycin <=2 S
Imaging:
08/09/2024 CXR (2 view): Focal rounded opacity within the right upper lobe appears to be slightly larger than an exam dated 07/19/2024. Patchy opacity within the left lower lung similar to recent examinations. Small nodular opacities within the right
lower lung, also similar to recent examinations. Please see full dictation for additional detail.
08/02/2024 PET/CT: There are numerous hypermetabolic nodules/masses within the lungs bilaterally. There is a 2.9 x 2.6 cm nodule within the lateral right upper lobe which demonstrates a max SUV of 8.2 on initial imaging and 8.9 on delayed imaging.
This appears to extend to the right mainstem bronchus. There is a consolidation within the medial right lower lobe which some adjacent max SUV of 6.4 on initial imaging and 7.0 on delayed imaging. There is a 1.6 x 1.3 cm nodule within the left lower
lobe infiltrates a max SUV of 5.4 on initial imaging and 5.6 on delayed imaging.
07/20/2024 CT chest with IV contrast: Bilateral lung nodules as detailed above. Largest lung nodule is a lobulated mass within the right upper lobe measuring 3.7 cm in greatest dimension. Additional bilateral lung nodules as detailed above.
Findings are likely reflective of malignancy, which may be primary bronchogenic with pulmonary metastases, or metastatic disease from a separate primary. Evaluation for primary malignancy may be obtained with PET/CT. Right hilar lymphadenopathy,
likely malignant.
Assessment / Plan
Pulmonary infiltrates
Bronch cultures with Pseudomonas aeruginosa
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
RA
- Maintained on Remicade Q 8 weeks
HTN
Recommendations:
Sensitivities of recovered Pseudomonas isolate reviewed and is pansensitive
Would continue with current course of levofloxacin given the possibility of Pseudomonas pneumonia/bronchitis given underlying immunosuppression. Pt was rx'ed 14d course by Pulm.
Follow-up chest x-ray in 4 to 6 weeks.
Care Review
Plan reviewed with: Physician (Hospitalist)
--- NOTE | 2024-08-10 13:22 | W.PN.HOSP.TC ---
Addendum entered and electronically signed by Elio Beckett MD 08/10/24 15:12:
I have discussed this case with infectious disease and pulmonary. Will discharge home with levofloxacin same dose and duration per ID.
Pulmonary went on to state that she did ask about visiting nurses therefore consulted case management to set up home visiting nurses. At this time we will discharge home with outpatient follow-up with pulm pulmonary
Original Note:
Today's Communication/Plan
-
Start Levaquin, stop date-08/23/2024.
Plan for discharge with a home visiting nurse.
Assessment / Plan
Assessment / Plan
Assessment -78-year-old female with PMHx significant for rheumatoid on Remicade infusions, HTN, hypothyroidism, narcolepsy and anxiety/depression is admitted to the [facility] for evaluation of shortness of breath and diagnosis of pneumonia.
Plan-
Pseudomonas pneumonia-
As cultured from left lower lobe bronchial alveolar lavage.
WBCs trending up, at 13.5, left shift noted.
Patient not requiring any oxygen, stable on room air.
Hemoglobin stable, previously assessed by pulmonology on outpatient basis and was prescribed Levaquin for Pseudomonas. S/p 1 dose.
Resume Levaquin, appreciate ID and pulmonology help in seeing the patient.
As needed antitussives, and supportive care.
Stable for discharge from hospital medicine standpoint as there are no indications for SIRS criteria, no fevers, no oxygen requirement, and no contraindication for oral antibiotics at this point of time.
ID and pulmonology in agreement with the plan.
Anemia-
Hemoglobin at 9.8, MCV at 87.5,
Normocytic anemia
Reactive thrombocytosis
Rheumatoid arthritis-
Last Remicade infusion greater than 8 weeks ago.
Most recent Remicade canceled given the concern for pneumonia
Hypertension-
Continue home dose of amlodipine and losartan
Hypothyroidism-
Continue levothyroxine
Narcolepsy-
Continue armodafinil as needed
Anxiety/depression-
Continue escitalopram
CODE STATUS-full code
DVT prophylaxis-Lovenox.
Anticipated Discharge: Today
Subjective/Interval History
-
Date of Service: August 10, 2024
Complains of cough, expectoration and hemoptysis.
Shortness of breath not requiring oxygen.
Objective Data
-
Labs:
Laboratory Results
08/10/24
07:30
WBC 13.5 H
Hgb 9.8 L
Hct 29.4 L
Plt Count 480 H
Sodium 137
Potassium 4.6
Chloride 104
Carbon Dioxide 27
BUN 17
Creatinine 0.7
Glucose 132 H
Calcium 8.6
Vital Signs:
Vital Signs
Temp Pulse Resp BP Pulse Ox
99.1 F 67 18 129/60 94
08/10/24 07:20 08/10/24 07:20 08/10/24 07:20 08/10/24 07:20 08/10/24 07:20
Review of Systems
-
History Source: Patient
Constitutional: Denies Fever, Weight Gain, Weight Loss, No Appetite or Fatigue
Respiratory: Reports Cough, Hemoptysis and Trouble Breathing; Denies Wheezing or Pleurisy
Cardiac: Denies Chest Pain, Diaphoresis or Palpitations
Abdomen/GI: Reports No Symptoms
Genitourinary: Reports No Symptoms
Musculoskeletal: Reports No Symptoms
Neuro: Reports No Symptoms
Allergy / Immunology: Reports No Symptoms
Physical Exam
-
General: Comfortable; Negative Respiratory Distress or Appears in Distress
HEENT: Moist Mucous Membranes; Negative Thrush
Respiratory: Clear to Auscultation (In bilateral upper lobe) and Wheezes (Expiratory wheezing in bilateral lower lobes.); Negative Rales, Rhonchi or Crackles
Cardiac: Regular Rhythm, S1/S2 and Murmur (2/6 systolic murmur best heard in the aortic area.)
GI: Soft, Nontender, Nondistended and Normal Bowel Sounds
Musculoskeletal: Negative Edema, Right Lower Extrem or Edema, Left Lower Extrem
Neuro: AO x 3 and No Motor Deficits
Psych: Calm
Data Reviewed
-
Diagnostic Radiology: Image personally visualized and interpreted, Report Reviewed by me and Discussed with Physician
CT Scan: Image personally visualized and interpreted, Report Reviewed by me and Discussed with Physician
Medical Tests (Nuc Med, Echo etc): Report Reviewed by me and Discussed with Physician
Labs: Labs Reviewed by me, Discussed with Physician and Discussed with Nurse
--- NOTE | 2024-08-10 15:13 | W.DCSUMMARY ---
Discharge Summary
Discharge Data
Date of Admission: 08/09/24
Date of Discharge: 08/10/24
-
Pending Results: No
Hospital Course
Assessment -78-year-old female with PMHx significant for rheumatoid on Remicade infusions, HTN, hypothyroidism, narcolepsy and anxiety/depression is admitted to the [facility] for evaluation of shortness of breath and diagnosis of pneumonia.
PCP - oJy Capps
Hospital course-
During her 1 day hospital course, ID and Pulmonology were consulted to assess the benefit of IV versus p.o. antibiotics, her Pseudomonas aeruginosa was pansensitive-hence there was no difference in IV versus p.o. antibiotics per ID at this point of
time. A decision was made to send the patient home on Levaquin 500 mg p.o. for 14 days with a stop date of 08/23/2024.
Her Pseudomonas aeruginosa was grown in the left lower lobe from the bronchoalveolar lavage. Recommended outpatient follow-up with Dr. Xie.
Discharge Plan
-
Patient Disposition: Home (Routine Discharge)
Discharge Diagnosis/Procedures: Pseudomonas aeruginosa pneumonia.
Condition: Good
Diet: No restrictions and As tolerated
Activity: No restrictions
Driving Restrictions: As prior to admission
Bathing Restrictions: None
Blood Work: CBC in 1 week.
Other Services: VN
Referrals:
Joy Capps PA-C [Primary Care Provider] -
Prescriptions:
New
guaifenesin 600 mg Tablet Extended Release 12hr
600 mg PO Q12 7 Days Qty: 14 0RF
levofloxacin 500 mg tablet
500 mg PO DAILY 14 Days Qty: 14 0RF
Continued
escitalopram oxalate 20 MG tablet
30 mg PO DAILY
levothyroxine 75 mcg Tablet
75 mcg PO DAILY
armodafinil 150 mg Tablet
150 mg PO DAILY PRN (Reason: narcolepsy )
losartan 100 mg Tablet
100 mg PO DAILY Qty: 1 0RF
amlodipine 2.5 mg tablet
2.5 mg PO DAILY
acetaminophen 325 mg Tablet
650 mg PO Q6H PRN (Reason: Pain)
lidocaine [Lidocaine Pain Relief] 4 % Adhesive Patch,Medicated
1 patch TOPICAL DAILY PRN (Reason: right shoulder pain)
infliximab [Remicade] 100 mg Recon Soln
IV
Discharge Orders:
Discharge Patient (As Directed); Ordered 08/10/24
Ordered By: Mikaela Mike
Discharge Date and Time
Print Language: SOUTH AFR[place]
[2024-08-10 15:57] VITALS: BP 119/58
--- NOTE | 2024-08-10 16:04 | VNURNOTE ---
Home Health Liaison met with patient at bedside to discuss [facility] nurse/therapy, visits, schedule and homebound status. Patient is agreeable and understands that visits at home will be 2-3 x per week to assess and teach medical management. She has
had [facility] in the past. She states she needs reinforcement w/acapella and incentive spirometer. She is CA'ed home on new Levaquin and Guaifenesin. Patient is aware that [facility] will contact them for start of care in 1-2 days after discharge from .
[facility] referral completed in [facility].
--- NOTE | 2024-08-14 12:32 | PN.CDI ---
CDI
- -
CDI:
Physician Documentation Request
Admit Date: 08/09/24 23:56
Dear Doctor,
Please review the following and provide your response in the progress notes.
Clinical Indicators:
Per RD assessment on 08/10, 'patient meets ASPEN/AND criteria for Moderate Malnutrition as evidenced by unintentional weight loss of 7.5% in 3 months and </= 75% nutritional intake for >/= one month'
BMI 18.3
Based on the above information and your assessment, which of the following most accurately represents the patient's nutritional status?
Moderate malnutrition
Other (please specify)Unable to determine
[place] Criteria ([facility] Hospitalist 2017)
2 or more criteria must be present for either
non severe or severe malnutrition
Note that the criteria differs related to the
presence of an acute or chronic illness
Acute Illness Chronic Illness
Energy Intake Non Severe: <75% for >7 days Non Severe: <75% for >1 month
Severe: <50% for >5 days Severe: <75% for >1 month
Weight Loss Non Severe: 1-2% over 1 week Non Severe: 5% over 1 month
5% over 1 month 7.5% over 3 months
7.5% over 3 months 10% over 6 months
1 year N/A 20% over 1 year
Severe: >2% over 1 week Severe: >5% over 1 month
>5% over 1 month >7.5% over 3 months
>7.5% over 3 months >10% over 6 months
1 year N/A >20% over 1 year
Body Fat Non Severe: Mild Decrease Non Severe: Mild Loss
Severe: Moderate Decrease Severe: Severe Loss
Muscle Mass Non Severe: Mild Decrease Non Severe: Mild Loss
Severe: Moderate Decrease Severe: Severe Loss
Fluid Accumulation Non Severe: Mild Accumulation Non Severe: Mild Accumulation
Severe: Moderate to severe Severe: Moderate to severe
accumulation accumulation
[employer]uced [employer] Planning Analyst Strength Non Severe: N/A Non Severe: N/A
Severe: Measurably reduced Severe: Measurably reduced
Additional criteria that can be used to Determine if Mild or Moderate Malnutrition ([employer] Manual 2018)
Mild Moderate Severe
Albumin gm/dl <3.0 gm/dl <2.5 gm/dl <2.0 gm/dl
Pre Albumin mg/dl <15 gm/dl <10 mg/dl <5.0 mg/dl
BMI <18.5 <17 <16
Use of terms such as suspected, likely, concern for, or probable (associated with a specific diagnosis that is being evaluated, monitored, or treated as if it exists) are acceptable and can be coded in the inpatient setting, when documented at the
time of discharge.
Thank you,
Sweetie Longoria
CDI Specialist
Please use your independent medical judgment in providing your response.
== END 2024-08-10 17:34 | disposition home health service (06) | DRG 178 ==
LOC: 4 WEST ACU 23:56
PROVIDERS: Nurse Practitioner; Nurse Practitioner Family; Student in an Organized Health Care Education/Training Program; ADMITTING PHYSICIAN Internal Medicine; ATTENDING PHYSICIAN Hospitalist; EMERGENCY PHYSICIAN Emergency Medicine; OTHER PHYSICIAN Internal Medicine; OTHER PHYSICIAN Internal Medicine Infectious Disease; PRIMARYCARE PHYSICIAN Physician Assistant
DX: J15.1 Pneumonia due to Pseudomonas (principal); D84.821 Immunodeficiency due to drugs; R04.2 Hemoptysis; J47.0 Bronchiectasis with acute lower respiratory infection; E03.9 Hypothyroidism, unspecified; F32.A Depression, unspecified; D64.9 Anemia, unspecified; M81.0 Age-related osteoporosis without current pathological fracture; D75.838 Other thrombocytosis; F41.9 Anxiety disorder, unspecified; G47.419 Narcolepsy without cataplexy; I10 Essential (primary) hypertension; M06.9 Rheumatoid arthritis, unspecified; Z60.2 Problems related to living alone; Z79.620 Long term (current) use of immunosuppressive biologic; Z88.8 Allergy status to other drugs, medicaments and biological substances; Z87.01 Personal history of pneumonia (recurrent); Z79.890 Hormone replacement therapy
CPT/HCPCS: 71046; 80048; 80053; 84145; 85025; 85027; 86803; 99284

== ENCOUNTER → 2024-09-08 08:19 | Outpatient (REF) | payer MEDICARE, SELFPAY ==
[2024-09-08 09:01] LABS: % Basophils 0.4 % (0-2); % Eosinophils 1.6 % (0-6); % Immature Granulocytes 0.5 % (0-0.5); % Lymphocytes 12.3 % (20.5-51.1); % Monocytes 7.5 % (1.7-9.3); % Neutrophils 77.7 % (42.2-75.2); Absolute Basophils 0.1 10^3/uL (0-0.2); Absolute Eosinophils 0.2 10^3/uL (0-0.7); Absolute Immature Granulocytes 0.1 10^3/uL (0-0.05); Absolute Lymphocytes 1.6 10^3/uL (1.2-3.4); Absolute Neutrophils 9.9 10^3/uL (1.4-6.5); Hematocrit 33.7 % (37.0-47.0); Hemoglobin 10.7 g/dL (12.0-16.0); Mean Corp Hgb Conc. 31.8 g/dL (33.0-37.0); Mean Corpuscular Hgb 28.4 pg (27.0-31.0); Mean Corpuscular Volume 89.4 fL (81.0-99.0); Mean Platelet Volume 8.7 fL (7.4-10.4); Nucleated Red Blood Cells % 0 %; Platelet Count 474 10^3/uL (130-400); Red Blood Cell Count 3.77 10^6/uL (4.20-5.40); Red Cell Dist. Width 17.7 % (11.5-14.5); White Blood Cell Count 12.7 10^3/uL (4.8-10.8)
[2024-09-08 09:39] LABS: ALT (SGPT) 18 U/L (0-35); AST (SGOT) 24 U/L (14-36); Albumin 3.8 g/dl (3.5-5.0); Alkaline Phosphatase 78 U/L (38-126); Blood Urea Nitrogen 15 mg/dl (7-17); Calcium 9.5 mg/dl (8.4-10.2); Carbon Dioxide 29 mmol/L (22-30); Chloride 104 mmol/L (98-107); Glucose 117 mg/dl (70-99); Potassium 4.5 mmol/L (3.5-5.1); Sodium 140 mmol/L (135-145); Total Bilirubin 0.5 mg/dl (0.2-1.3); Total Protein 7.3 g/dl (6.3-8.2); eGFR > 60.00
[2024-09-08 10:19] LABS: Erythrocyte Sed Rate 82 mm/hour (0-20)
[2024-09-10 01:36] LABS: CCP Antibody IgG/IgA 2 Units (0-19)
[2024-09-10 06:44] LABS: Myeloperoxidase Antibody 0 AU/mL (0-19); Serine Protease-3, IgG 817 AU/mL (0-19)
[2024-09-10 15:42] LABS: Rheumatoid Agglutinin Less Than 10 IU (<10 IU)
== END ==
LOC: RAD 08:19
PROVIDERS: ATTENDING PHYSICIAN Internal Medicine Critical Care Medicine; FAMILY PHYSICIAN Family Medicine; REFERRING PHYSICIAN Internal Medicine Rheumatology
DX: R91.8 Other nonspecific abnormal finding of lung field (principal); M05.20 Rheumatoid vasculitis with rheumatoid arthritis of unspecified site; M06.9 Rheumatoid arthritis, unspecified; M15.9 Polyosteoarthritis, unspecified; M81.0 Age-related osteoporosis without current pathological fracture; Z79.899 Other long term (current) drug therapy
CPT/HCPCS: 36415; 71250; 80053; 83516; 85025; 85652; 86140; 86200; 86430

== ENCOUNTER → 2024-10-02 08:22 | Outpatient (REF) | payer MEDICARE, SELFPAY ==
[2024-10-02 09:03] LABS: Hematocrit 33.3 % (37.0-47.0); Hemoglobin 10.2 g/dL (12.0-16.0); Mean Corp Hgb Conc. 30.6 g/dL (33.0-37.0); Mean Corpuscular Volume 91.7 fL (81.0-99.0); Nucleated Red Blood Cells % 0 %; Platelet Count 425 10^3/uL (130-400); Red Cell Dist. Width 17.2 % (11.5-14.5)
[2024-10-02 11:03] LABS: ALT (SGPT) 19 U/L (0-35); AST (SGOT) 20 U/L (14-36); Albumin 3.7 g/dl (3.5-5.0); Alkaline Phosphatase 70 U/L (38-126); Blood Urea Nitrogen 16 mg/dl (7-17); Calcium 9.0 mg/dl (8.4-10.2); Carbon Dioxide 28 mmol/L (22-30); Chloride 101 mmol/L (98-107); Glucose 126 mg/dl (70-99); Potassium 4.5 mmol/L (3.5-5.1); Sodium 137 mmol/L (135-145); Total Protein 7.2 g/dl (6.3-8.2); eGFR > 60.00
[2024-10-02 11:07] LABS: C-Reactive Protein 72.40 mg/L (0.0-10.00)
[2024-10-04 12:23] LABS: Rheumatoid Agglutinin Less Than 10 IU (<10 IU)
[2024-10-04 16:08] LABS: Serine Protease-3, IgG 758 AU/mL (0-19)
[2024-10-04 21:10] LABS: CCP Antibody IgG/IgA 2 Units (0-19)
== END ==
LOC: REG 08:22
PROVIDERS: ATTENDING PHYSICIAN Internal Medicine Rheumatology; FAMILY PHYSICIAN Family Medicine
DX: M05.20 Rheumatoid vasculitis with rheumatoid arthritis of unspecified site (principal); M06.9 Rheumatoid arthritis, unspecified; M15.9 Polyosteoarthritis, unspecified; M81.0 Age-related osteoporosis without current pathological fracture; Z79.899 Other long term (current) drug therapy
CPT/HCPCS: 36415; 80053; 83516; 85025; 85652; 86140; 86200; 86430

== ENCOUNTER → 2024-10-17 07:56 | Outpatient (REF) | payer MEDICARE, SELFPAY | LOC: RAD 07:56 | PROVIDERS: ATTENDING PHYSICIAN Internal Medicine Critical Care Medicine; FAMILY PHYSICIAN Family Medicine; REFERRING PHYSICIAN Internal Medicine Rheumatology | DX: R05.3 Chronic cough (principal) | CPT/HCPCS: 71046 ==

== ENCOUNTER → 2024-12-11 12:12 | Outpatient (REF) | payer MEDICARE, SELFPAY | LOC: REG 12:12 | PROVIDERS: ATTENDING PHYSICIAN Nurse Practitioner Family; FAMILY PHYSICIAN Family Medicine; OTHER PHYSICIAN Internal Medicine Critical Care Medicine | DX: J41.1 Mucopurulent chronic bronchitis (principal) | CPT/HCPCS: 87070; 87077; 87205 ==

== ENCOUNTER → 2024-12-21 15:29 | Outpatient (REF) | payer MEDICARE, SELFPAY | LOC: WDC 15:29 | PROVIDERS: ATTENDING PHYSICIAN Obstetrics & Gynecology Gynecology; FAMILY PHYSICIAN Family Medicine | DX: Z12.31 Encounter for screening mammogram for malignant neoplasm of breast (principal) | CPT/HCPCS: 77063; 77067 ==

== ENCOUNTER → 2025-02-20 10:24 | Outpatient (REF) | payer MEDICARE, SELFPAY | LOC: RAD 10:24 | PROVIDERS: ATTENDING PHYSICIAN Internal Medicine Critical Care Medicine; FAMILY PHYSICIAN Family Medicine; OTHER PHYSICIAN Internal Medicine Rheumatology | DX: R91.8 Other nonspecific abnormal finding of lung field (principal); R06.02 Shortness of breath | CPT/HCPCS: 70490; 71250 ==

== ENCOUNTER → 2025-03-19 09:57 | Outpatient (REF) | payer MEDICARE, SELFPAY | LOC: RAD 09:57 | PROVIDERS: ATTENDING PHYSICIAN Internal Medicine Critical Care Medicine; FAMILY PHYSICIAN Family Medicine | DX: R91.8 Other nonspecific abnormal finding of lung field (principal); J18.9 Pneumonia, unspecified organism; J98.11 Atelectasis | CPT/HCPCS: 71250 ==